=== PATIENT | female | born 1935 | race Caucasian/White ===

== ENCOUNTER 2017-01-18 04:49 | Emergency (ER) | payer OTHER ==
[~2017-01-18] VITALS: Ht 170.2 cm; Wt 110.2 kg
--- NOTE | 2017-01-18 04:57 | ED GENERAL ADULT ---
See Addendum History of Present Illness General Chief Complaint: Dyspnea (COPD, CHF, Other) Stated Complaint: SOB Source: EMS, W10 Exam Limitations: confusion, dementia Vital Signs & Intake/Output Vital Signs & Intake/Output Vital Signs Date Time Temp Pulse Resp B/P B/P Pulse O2 O2 Flow FiO2 Mean Ox Delivery Rate 01/18 0807 97.2 58 18 170/74 94 Nasal 2.0L Cannula 01/18 0651 97.6 54 18 175/75 95 Nasal 1.0L Cannula 01/18 0636 18 93 Nasal 1.0L Cannula 01/18 0527 98 Nasal 2.0L Cannula 01/18 0502 96.5 53 20 166/70 99 Nasal 6.0L Cannula Allergies Coded Allergies: morphine (Severe, ?? UNSURE 01/18/17) UNSURE OF REACTION, W10 FROM [facility] DID NOT STATE,PT POOR HISTORIAN AND AMS nitrofurantoin (From MACROBID) (Intermediate, ?? UNSURE 01/18/17) UNSURE OF REACTION, W10 FROM [facility] DID NOT STATE ON PAPERWORK, PT POOR HISTORIAN AND AMS hydromorphone (?? UNSURE 01/18/17) UNSURE OF REACTION, W10 FROM [facility] DID NOT STATE, PT POOR HISTORIAN AND AMS Triage Nurses Notes Reviewed? yes HPI: Patient sent in from her long-term for evaluation for hypoxia and confusion. Patient was found hypoxic with an O2 sat in the 70s and change of mental status at approximately midnight. Patient was started on oxygen. Patient's mental status did not improve so she was taken for evaluation. Patient has dementia but it is usually very talkative. shelter staff states that this is a big change for her. Patient has no complaints. Patient denies any chest pain or cough. Patient denies any nausea or vomiting. Patient was given 2 duonebs and 125 mg of IV Solu-Medrol by EMS. (LUX CM,BERTHA Mcnair) Past History Travel History Traveled to [place] past 21 day No Medical History Any Pertinent Medical History? see below for history Neurological: dementia, DYSPHAGIA EENT: glaucoma Cardiovascular: AFIB, CHOL Respiratory: COPD Gastrointestinal: NONE Hepatic: NONE Renal: NONE Musculoskeletal: SPINAL STENOSIS Psychiatric: depression Endocrine: HYPOTHYROID DM Blood Disorders: VIT D DEF Surgical History Surgical History: non-contributory Psychosocial History What is your primary language Ukrainian Tobacco Use: Never used Family History Hx Contributory? No (LUX CM,BERTHA Mcnair) Review of Systems Review of Systems Constitutional: Reports: see HPI. (LUX CM,BERTHA Mcnair) Physical Exam Physical Exam General Appearance: well developed/nourished, no apparent distress, awake Head: atraumatic, normal appearance Eyes: Bilateral: PERRL, EOMI. Neck: normal inspection, supple, full range of motion, NO JVD Respiratory: decreased breath sounds, wheezing Cardiovascular: normal peripheral pulses, tachycardia Gastrointestinal: normal bowel sounds, soft, non-tender, no organomegaly Extremities: pedal edema (TRACE) Neurologic/Psych: A&O X2 Skin: intact, normal color, warm/dry Core Measures ACS in differential dx? Yes CVA/TIA Diagnosis: No Severe Sepsis Present: No Septic Shock Present: No (LUX CM,BERTHA Mcnair) Progress Differential Diagnoses I considered the following diagnoses in my evaluation of the patient: Plan of Care: Orders Procedure Date/time Status TROPONIN LEVEL 01/18 09 Complete EKG 01/18 0900 Active ARTERIAL BLOOD GAS (GEN) 01/19 456 Complete Telemetry/Gymnastic Coach 01/19 456 Active Straight Cath 01/19 456 Active CULTURE,URINE 01/19 456 Active BLOOD CULTURE 01/19 456 Active URINALYSIS 01/19 456 Complete TROPONIN LEVEL 01/19 456 Complete COMPREHENSIVE METABOLIC PANEL 01/19 456 Complete CBC WITHOUT DIFFERENTIAL 01/19 456 Complete EKG 01/18 045 Active Laboratory Tests 01/18/17 0858: Troponin I 0.01 01/18/17 0550: pH 7.38, pCO2 45, pO2 73 L, HCO3 27, ABG O2 Sat (Measured) 94.0 L, P-50 (Temp Corrected) Y, Carboxyhemoglobin 0.3 L, O2 Concentration % 2 LPM, Temperature 96.5 L, O2 Delivery Method N/C, Phlebotomy Draw Site RIGHT RADIAL 01/18/17 0515: Urine Color YEL, Urine Clarity CLEAR, Urine pH 6.0, Ur Specific [place] 1.025, Urine Protein NEG, Urine Ketones NEG, Urine Nitrite NEG, Urine Bilirubin NEG, Urine Urobilinogen 0.2, Ur Leukocyte Esterase NEG, Ur Microscopic EXAM NOT REQUIRED, Urine Hemoglobin NEG, Urine Glucose NEG 01/18/17 0500: Anion Gap 8, Estimated GFR 53 L, BUN/Creatinine Ratio 15.0, Glucose 109 H, Calcium 8.6, Total Bilirubin 0.7, AST 19, ALT 25, Alkaline Phosphatase 64, Troponin I 0.02, Total Protein 6.2 L, Albumin 3.7, Globulin 2.5, Albumin/ Globulin Ratio 1.5, CBC w Diff NO MAN DIFF REQ, RBC 3.55 L, MCV 96.7, MCH 32.7 H, RDW 13.1, MPV 9.7, Gran % 62.0, Lymphocytes % 25.9, Monocytes % 7.8, Eosinophils % 3.8, Basophils % 0.5, Absolute Granulocytes 3.9, Absolute Lymphocytes 1.6, Absolute Monocytes 0.5, Absolute Eosinophils 0.2, Absolute Basophils 0, PUBS MCHC 33.8 Microbiology 01/19 524 BLOOD: Blood Culture - RECD 01/18 515 URINE ROUT: Urine Culture - RECD 01/18 0500 BLOOD: Blood Culture - RECD Diagnostic Imaging: Viewed by Me: Radiology Read. Discussed w/RAD: Radiology Read. CXR Impression: PATIENT: PINEDA CASTELLANO PRESENT AGE: 81 PATIENT ACCOUNT NO: [id number] : 34 LOCATION: [facility] ORDERING PHYSICIAN: BERTHA WASSERMAN MD SERVICE DATE: 01/18/17 EXAM TYPE: RAD - XRY-PORTABLE CHEST XRAY EXAMINATION: XR PORTABLE CHEST CLINICAL INFORMATION: Hypoxia. Change in mental status. Presumptive diagnosis of pneumonia. COMPARISON : None TECHNIQUE: Portable AP semierect view of the chest was obtained. FINDINGS : The cardiomediastinal silhouette is enlarged. Prominence of the pulmonary justice bilaterally is noted. Lungs bilaterally demonstrate low lung volumes. Some linear opacities are seen in the retrocardiac left lung base, most likely related to subsegmental atelectasis. No definite dense consolidation, effusion or pneumothorax is seen. No evidence of pulmonary edema. Bony structures unremarkable. IMPRESSION: 1. Enlarged cardiomediastinal silhouette and bilateral justice. This may be related to portable technique. Recommend follow-up PA and lateral views of the chest when clinically appropriate. 2. Low lung volumes with linear retrocardiac left lung base opacities most consistent with subsegmental atelectasis. 3. No dense consolidation. DICTATED BY: LEXII MERRITT MD DATE/ TIME DICTATED:01/18/17623 MAINTENANCE CUSTODIAN:QUIN DATE/TIME TRANSCRIBED: 01/18/17623 CONFIDENTIAL, DO NOT COPY WITHOUT APPROPRIATE AUTHORIZATION. < Electronically signed in Other Vendor System> SIGNED BY: LEXII MERRITT MD 01/18/17 0630 Initial ED EKG: SR WITH LBBB AND FIRST DEGREE HEART BLOCK. NO OLD TO COMPARE Hand-Off Endorsed To: ARIC VANEGAS MD Endorsed Time: 07 Pending: labs (BERTHA WASSERMAN MD) Comments: Spoke with daughter. Patient had pneumonia over winter with short period of time requiring oxygen. She reports her mental status is at baseline. Currently on 1L NC. Repeat EKG without change and troponin normal. (ARIC VANEGAS MD) Departure Departure Condition: Stable Clinical Impression Primary Impression: COPD (chronic obstructive pulmonary disease) Referrals: CHU ROLDAN MD (PCP/Family) Departure Forms: Customer Survey General Discharge Information (BERTHA WASSERMAN MD) Departure Time of Disposition: 948 Disposition: ACUTE REHAB FACILITY (ARIC VANEGAS MD) Critical Care Note Critical Care Note Critical Care Time: non-applicable (BERTHA WASSERMAN MD)
[2017-01-18 05:09] LABS: ABSOLUTE BASOPHIL COUNT 0 /CUMM (0.0-0.2); ABSOLUTE EOSINOPHIL COUNT 0.2 /CUMM (0.0-0.7); ABSOLUTE GRANULOCYTE CT 3.9 /CUMM (1.4-6.5); ABSOLUTE LYMPH COUNT 1.6 /CUMM (1.2-3.4); ABSOLUTE MONOCYTE COUNT 0.5 /CUMM (0.10-0.60); BASOPHIL % 0.5 % (0.0-2.0); EOSINOPHIL % 3.8 % (0-5); HEMATOCRIT 34.3 % (37-47); MEAN CORPUSCULAR HGB 32.7 PG (27.0-31.0); MEAN CORPUSCULAR HGB CONC 33.8 G/DL (33.0-37.0); MEAN CORPUSCULAR VOLUME 96.7 FL (81.0-99.0); MEAN PLATELET VOLUME 9.7 FL (7.4-10.4); PLATELET COUNT 171 /CUMM (130-400); RBC DISTRIBUTION WIDTH 13.1 % (11.5-14.5); RED BLOOD CELL CT 3.55 /CUMM (4.20-5.40); WHITE BLOOD CELL COUNT 6.2 /CUMM (4.8-10.8)
--- NOTE | 2017-01-18 06:30 | RADIOLOGY REPORT ---
EXAMINATION: XR PORTABLE CHEST CLINICAL INFORMATION: Hypoxia. Change in mental status. Presumptive diagnosis of pneumonia. COMPARISON: None TECHNIQUE: Portable AP semierect view of the chest was obtained. FINDINGS: The cardiomediastinal silhouette is enlarged. Prominence of the pulmonary justice bilaterally is noted. Lungs bilaterally demonstrate low lung volumes. Some linear opacities are seen in the retrocardiac left lung base, most likely related to subsegmental atelectasis. No definite dense consolidation, effusion or pneumothorax is seen. No evidence of pulmonary edema. Bony structures unremarkable. IMPRESSION: 1. Enlarged cardiomediastinal silhouette and bilateral justice. This may be related to portable technique. Recommend follow-up PA and lateral views of the chest when clinically appropriate. 2. Low lung volumes with linear retrocardiac left lung base opacities most consistent with subsegmental atelectasis. 3. No dense consolidation.
[2017-01-18 10:09] VITALS: BP 115/61
== END 2017-01-18 10:19 ==
LOC: ERH 04:49
PROVIDERS: Emergency Medicine
DX: J44.9 Chronic obstructive pulmonary disease, unspecified (principal)
CPT/HCPCS: 81003; 87040; 87086; 87147; 93005; 93010

== ENCOUNTER 2017-01-19 02:22 | Emergency (ER) | payer OTHER ==
[~2017-01-19] VITALS: Ht 162.6 cm; Wt 81.6 kg
--- NOTE | 2017-01-19 02:28 | ED GENERAL ADULT ---
History of Present Illness General Chief Complaint: General Adult Stated Complaint: BIBA FROM ECF HERE FOR EVAL ? +BLOOD CULTURE Source: patient, family, old records, EMS Exam Limitations: no limitations, patient's age, clinical condition Vital Signs & Intake/Output Vital Signs & Intake/Output Vital Signs Date Time Temp Pulse Resp B/P B/P Pulse O2 O2 Flow FiO2 Mean Ox Delivery Rate 01/19 0228 96.8 66 18 153/65 93 Room Air Allergies Coded Allergies: morphine (Severe, ?? UNSURE 01/18/17) UNSURE OF REACTION, W10 FROM [facility] DID NOT STATE,PT POOR HISTORIAN AND AMS nitrofurantoin (From MACROBID) (Intermediate, ?? UNSURE 01/18/17) UNSURE OF REACTION, W10 FROM [facility] DID NOT STATE ON PAPERWORK, PT POOR HISTORIAN AND AMS hydromorphone (?? UNSURE 01/18/17) UNSURE OF REACTION, W10 FROM [facility] DID NOT STATE, PT POOR HISTORIAN AND AMS Triage Nurses Notes Reviewed? yes Onset: Gradual Duration: day(s): Timing: recent history Injury Environment: home Severity: mild No Modifying Factors: none Associated Symptoms: pt reports feeling well. HPI: 81-year-old woman from a snf presents to the ED after having one out of 2 bottles being positive for gram-positive cocci. The lab contacted this ED provider and shared that one out of 2 bottles was positive for gram-positive cocci. I then called her snf to have the patient transferred here for further evaluation. The patient states that she is feeling well, without complaint, and is comfortable. She is otherwise well. She has no fever chills nausea vomiting diarrhea shortness of breath or chest pain or dyspnea or dysuria. Past History Medical History Any Pertinent Medical History? see below for history Neurological: dementia, DYSPHAGIA EENT: glaucoma Cardiovascular: AFIB, CHOL Respiratory: COPD Gastrointestinal: NONE Hepatic: NONE Renal: NONE Musculoskeletal: SPINAL STENOSIS Psychiatric: depression Endocrine: HYPOTHYROID DM Blood Disorders: VIT D DEF Surgical History Surgical History: non-contributory Psychosocial History What is your primary language [place] Family History Hx Contributory? No Review of Systems Review of Systems Constitutional: Reports: no symptoms. EENTM: Reports: no symptoms. Respiratory: Reports: no symptoms. Cardiovascular: Reports: no symptoms. GI: Reports: no symptoms. Genitourinary: Reports: no symptoms. Musculoskeletal: Reports: no symptoms. Skin: Reports: no symptoms. Neurological/Psychological: Reports: no symptoms. Hematologic/Endocrine: Reports: no symptoms. Immunologic/Allergic: Reports: no symptoms. All Other Systems: Reviewed and Negative Physical Exam Physical Exam General Appearance: well developed/nourished, no apparent distress, alert, awake , comfortable Head: atraumatic, normal appearance Eyes: Bilateral: normal appearance. Ears, Nose, Throat: normal pharynx, normal ENT inspection, hearing grossly normal Neck: normal inspection, supple, full range of motion Respiratory: normal breath sounds, chest non-tender, no respiratory distress, quiet respiration, lungs clear Cardiovascular: regular rate/rhythm, edema Gastrointestinal: normal bowel sounds, soft, non-tender, no organomegaly Back: normal inspection, normal range of motion Neurologic/Psych: no motor/sensory deficits, awake, alert, oriented x 3 Skin: intact, normal color, warm/dry Core Measures ACS in differential dx? No CVA/TIA Diagnosis: No Severe Sepsis Present: No Septic Shock Present: No Progress Differential Diagnoses I considered the following diagnoses in my evaluation of the patient: False positive blood culture versus sepsis versus bacteremia, which is unlikely. Plan of Care: Orders Procedure Date/time Status BLOOD CULTURE 01/20 240 Active BLOOD CULTURE 01/20 228 Active TROPONIN LEVEL 01/20 228 Complete COMPREHENSIVE METABOLIC PANEL 01/20 228 Complete CBC WITHOUT DIFFERENTIAL 01/20 228 Complete EKG 01/20 228 Active Laboratory Tests 01/19/17 0140: Anion Gap 11, Estimated GFR 53 L, BUN/Creatinine Ratio 20.0, Glucose 167 H, Calcium 9.4, Total Bilirubin 0.9, AST 19, ALT 26, Alkaline Phosphatase 72, Troponin I 0.03, Total Protein 6.6, Albumin 3.9, Globulin 2.7, Albumin/Globulin Ratio 1.4, CBC w Diff NO MAN DIFF REQ, RBC 3.54 L, MCV 97.0, MCH 32.9 H, RDW 13.3, MPV 10.7 H, Gran % 90.7 H, Lymphocytes % 5.9 L, Monocytes % 3.4, Eosinophils % 0, Basophils % 0 L, Absolute Granulocytes 12.0 H, Absolute Lymphocytes 0.8 L, Absolute Monocytes 0.4, Absolute Eosinophils 0, Absolute Basophils 0, PUBS MCHC 34.0 Microbiology 01/20 140 BLOOD: Blood Culture - RECD 01/19 130 BLOOD: Blood Culture - RECD Initial ED EKG: LBBB, no change from prior. Departure Departure Disposition: HOME OR SELF CARE Condition: Stable Clinical Impression Primary Impression: Positive blood culture Referrals: CHU ROLDAN MD (PCP/Family) Departure Forms: Customer Survey General Discharge Information Comments 01/19/17, 5:20am... pt stable in ED throughout... labs benign... she is feeling well and is without concern.... pt may have had a false positive blood culture. Blood cultures re-sent. Pt safe for discharge. Critical Care Note Critical Care Note Critical Care Time: non-applicable
[2017-01-19 03:06] LABS: ABSOLUTE BASOPHIL COUNT 0 /CUMM (0.0-0.2); ABSOLUTE EOSINOPHIL COUNT 0 /CUMM (0.0-0.7); ABSOLUTE LYMPH COUNT 0.8 /CUMM (1.2-3.4); ABSOLUTE MONOCYTE COUNT 0.4 /CUMM (0.10-0.60); BASOPHIL % 0 % (0.0-2.0); EOSINOPHIL % 0 % (0-5); GRANULOCYTE % 90.7 % (42.2-75.2); HEMATOCRIT 34.4 % (37-47); MEAN CORPUSCULAR HGB 32.9 PG (27.0-31.0); MEAN PLATELET VOLUME 10.7 FL (7.4-10.4); PLATELET COUNT 190 /CUMM (130-400); RBC DISTRIBUTION WIDTH 13.3 % (11.5-14.5); RED BLOOD CELL CT 3.54 /CUMM (4.20-5.40)
[2017-01-19 03:21] LABS: WHITE BLOOD CELL COUNT 13.2 /CUMM (4.8-10.8)
[2017-01-19 05:40] VITALS: BP 157/70
== END 2017-01-19 06:04 ==
LOC: ERH 02:22
PROVIDERS: Pediatrics
DX: R78.81 Bacteremia (principal); I48.91 Unspecified atrial fibrillation; F03.90 Unspecified dementia, unspecified severity, without behavioral disturbance, psychotic disturbance, mood disturbance, and anxiety
CPT/HCPCS: 87040; 93005; 93010

== ENCOUNTER 2017-10-20 13:14 | Inpatient (IN) | payer OTHER, MEDICARE ==
[~2017-10-20] VITALS: Ht 170.2 cm; Wt 94.4 kg
[~2017-10-20 13:14] MED LIST: ACETAMINOPHEN500 M4 PO; AMIODARONE HCL200 M1 PO; ASPIRIN81 M4 PO; ATORVASTATIN CA20 M1 PO; BETIMOL5 M1 OU; BIOFREEZE118 ML TOP; BREO ELLIPTA 11 EACH PO; ELIQUIS5 M1 PO; FLUTICASONE PRO16 GM NASB; GAVILAX17 GM PO; HYDRALAZINE HCL50 M1 PO; HYDROCHLOROTHIA25 M1 PO; IPRAT-ALBUT 0.5-3 ML PO; KEFLEX500 M1 PO; LEVOTHYROXINE112 MCG PO; MIRTAZAPINE15 M2 PO; NAMENDA XR14 M1 PO; NIASPAN500 M1 PO; PERCOCET 5-3251 EACH PO; POTASSIUM CHLO10 ME3 PO; SENNA S TABLET1 EACH PO; SEROQUEL25 M1 PO; TRAMADOL HCL50 M1 PO; TRAVATAN Z5 ML OU; TRAZODONE HCL50 M1 PO; VITAMIN B-121000 MC3 PO; VITAMIN D250000 UNIT PO; VOLTAREN100 GM TOP
--- NOTE | 2017-10-20 13:30 | ED AMS/SEIZURE/WEAK/DIZZY ---
History of Present Illness General Chief Complaint: General Adult Stated Complaint: BIBA APHASIA Source: patient, family, old records, EMS Exam Limitations: confusion Vital Signs & Intake/Output Vital Signs & Intake/Output Vital Signs Date Time Temp Pulse Resp B/P B/P Pulse O2 O2 Flow FiO2 Mean Ox Delivery Rate 10/20 1527 Room Air Room Air 10/20 1526 98.0 60 20 139/64 94 Room Air 10/20 1319 98.1 58 16 128/50 96 Room Air Allergies Coded Allergies: morphine (Intermediate, VIIOLENT GI UPSET 10/20/17) UNSURE OF REACTION, W10 FROM [facility] DID NOT STATE,PT POOR HISTORIAN AND AMS nitrofurantoin (From MACROBID) (Intermediate, ?? UNSURE 10/20/17) UNSURE OF REACTION, W10 FROM [facility] DID NOT STATE ON PAPERWORK, PT POOR HISTORIAN AND AMS hydromorphone (?? UNSURE 10/20/17) UNSURE OF REACTION, W10 FROM [facility] DID NOT STATE, PT POOR HISTORIAN AND AMS lisinopril (UNKNOWN 10/20/17) Reconcile Medications Acetaminophen 500 MG TABLET 2 TAB PO TID PAIN (Reported) Amiodarone (Cordarone) 200 MG TAB 0.5 TAB PO DAILY HIGH BLOOD PRESSURE ( Reported) Apixaban (Eliquis) 5 MG TABLET 1 TAB PO BID BLOOD HEALTH (Reported) Aspirin (Aspirin*) 81 MG TAB.CHEW 1 TAB PO DAILY HEART HEALTH (Reported) Atorvastatin Calcium 20 MG TABLET 1 TAB PO QPM HIGH CHOLESTROL (Reported) Cephalexin (Keflex) 500 MG CAPSULE 1 CAP PO BID UTI Cyanocobalamin (Vitamin B-12) 1,000 MCG TABLET 1 TAB PO QPM VITAMIN SUPPORT ( Reported) Diclofenac Sodium (Voltaren) 1 % GEL..GRAM. 2 GM TOP BID KNEES (Reported) apply to affected area(s) Ergocalciferol (Vitamin D2) (Vitamin D2) 50,000 UNIT CAPSULE 1 CAP PO EVERY MONTH HEALTH SUPPLEMENT (Reported) ON THE AT 9 AM Fluticasone Propionate 50 MCG/ACTUATION SPRAY.SUSP 1 SPRAY NASB BID ALLERGIES (Reported) Fluticasone/Vilanterol (Breo Ellipta 100-25 Mcg INH) 100 MCG-25 MCG/DOSE BLST.W.DEV 1 PUFF PO DAILY BREATHING PROBLEMS (Reported) Hydralazine HCl 50 MG TABLET 1 TAB PO Q12 HIGH BLOOD PRESSURE (Reported) Hydrochlorothiazide 25 MG TABLET 1 TAB PO DAILY HIGH BLOOD PRESSURE (Reported ) Ipratropium/Albuterol Sulfate (Iprat-Albut 0.5-3(2.5) MG/3 Ml) 0.5 MG-3 MG (2.5 MG BASE)/3 ML AMPUL.NEB 1 VIAL PO TID BREATHING PROBLEMS (Reported) Levothyroxine Sodium 112 MCG TABLET 1 TAB PO QPM THYROID (Reported) Memantine HCl (Namenda XR) 14 MG CAP.SPR.24 1 CAP PO DAILY MENTAL HEALTH ( Reported) Menthol (Biofreeze) 4 % GEL..ML. 1 SERAFIN TOP BID BACK (Reported) Mirtazapine 15 MG TABLET 1 TAB PO QPM SLEEP (Reported) Niacin (Niaspan) 500 MG TAB.ER.24H 1 TAB PO QPM UNKNOWN (Reported) Oxycodone HCl/Acetaminophen (Percocet 5-325 MG Tablet) 5 MG-325 MG TABLET 10.5 TAB PO BID PAIN (Reported) Polyethylene Glycol 3350 (Gavilax) 17 GRAM POWD.PACK 1 PAC PO SuTuFr CONSTIPATION (Reported) Potassium Chloride 10 MEQ CAPSULE.ER 1 CAP PO DAILY HEALTH SUPPLEMENT ( Reported) Quetiapine Fumarate (Seroquel) 25 MG TABLET 1 TAB PO QPM MENTAL HEALTH ( Reported) Sennosides/Docusate Sodium (Senna S Tablet) 8.6 MG-50 MG TABLET 1 TAB PO BID CONSTIPATION (Reported) Timolol (Betimol) 0.5 % DROPS 1 DRP OPH QPM EYE (Reported) Travoprost (Travatan Z) 0.004 % DROPS 1 GTT OPH DAILY EYE PROBLEMS (Reported) Trazodone HCl 50 MG TABLET 0.5 TAB PO QPM SLEEP (Reported) Triage Note: 82 Y/O FEMALE [facility] FOR EVAL OF 2 EPISODES OF APHASIA THIS MORNING. PER EMS REPORT, PT "HAD TWO EPISODES WHERE SHE LOOKED OFF INTO SPACE AND WASNT RESPONDING .. BOTH RESOLVED BY THE TIME THEY CALLED US". EMS REPORTS "THE LAST TIME SHE DID THIS, SHE HAD A UTI PER STAFF AT FACILITY". PT ARRIVES A/O (HX DEMENTIA), RESPONDING APPROPRIATELY. PT UNABLE TO STATE WHAT HAPPENED THIS MORNING BUT CAN STATE SHE IS IN A HOSPITAL NOW. PT DENIES COMPLAINTS. SLOW TO RESPOND THOUGH RESPONDS TO POSED QUESTIONS CORRECTLY. NO FACIAL DROOP NOTED. PRE HOSPITAL FINGERSTICK 111. PREHOSPITAL IV IN PL[facility] [place] BOSS OUT TO [place] [facility] Triage Nurses Notes Reviewed? yes Onset: Abrupt Duration: unknown duration Timing: recent history Injury Environment: home Severity: moderate, severe No Modifying Factors: none HPI: 82-year-old female brought into the emergency room after having a episode of unresponsiveness between 9 AM and 10 PM approximately this morning at nursing facility. This has happened to the patient previously. She has these episodes where she does not respond and is confused. There was no facial drooping reported. She denies any chest pain or shortness of breath or any symptoms at this time. She was brought in by ambulance for further evaluation. (Joseph Rai) Past History Travel History Traveled to [place] past 21 day No Medical History Any Pertinent Medical History? see below for history Neurological: dementia, DYSPHAGIA EENT: glaucoma Cardiovascular: AFIB, CHOL Respiratory: COPD Gastrointestinal: NONE Hepatic: NONE Renal: NONE Musculoskeletal: SPINAL STENOSIS Psychiatric: depression Endocrine: HYPOTHYROID DM Blood Disorders: VIT D DEF Surgical History Surgical History: non-contributory Psychosocial History What is your primary language Amharic Tobacco Use: Never used Family History Hx Contributory? No (Joseph Rai) Review of Systems Review of Systems Constitutional: Reports: no symptoms. EENTM: Reports: no symptoms. Respiratory: Reports: no symptoms. Cardiovascular: Reports: no symptoms. GI: Reports: no symptoms. Genitourinary: Reports: no symptoms. Musculoskeletal: Reports: no symptoms. Skin: Reports: no symptoms. Neurological/Psychological: Reports: see HPI. Hematologic/Endocrine: Reports: no symptoms. Immunologic/Allergic: Reports: no symptoms. All Other Systems: Reviewed and Negative (Joseph Rai) Physical Exam Physical Exam General Appearance: alert, awake Head: atraumatic Eyes: Bilateral: normal appearance, EOMI. Ears, Nose, Throat: normal ENT inspection, hearing grossly normal Neck: normal inspection Respiratory: normal breath sounds, no respiratory distress Cardiovascular: regular rate/rhythm Gastrointestinal: soft Back: normal inspection Extremities: normal range of motion Neurologic/Psych: no motor/sensory deficits, awake, alert, oriented x 3, normal gait, yarn cleaner II-XII nml as tested Skin: intact, normal color Core Measures ACS in differential dx? Yes CVA/TIA Diagnosis Yes NIH Stroke Scale (24 Hours) NIH Stroke Scale (24 Hours) Response Value Level of Consciousness alert 0 LOC Questions answers both correctly 0 LOC Commands obeys both correctly 0 Best Gaze normal 0 Visual Olguin no visual loss 0 Facial Paresis normal 0 Motor Arm - Left no drift 0 Motor Arm - Right no drift 0 Motor Leg - Left untestable 0 Motor Leg - Right untestable 0 Limb Ataxia no ataxia 0 Sensory normal 0 Best Language no aphasia 0 Dysarthria normal articulation 0 Extinction and Inattention no neglect 0 Total 0 Date Last Known Well 10/20/17 (UNNOWN) Symptom start date 10/20/17 Reason tPA not ordered Medical Contraindication Swallow Evaluation Pass Swallow eval date 10/20/17 Swallow eval time 1547 Sepsis Present: No Sepsis Focused Exam Completed? No (Joseph Rai) Progress Differential Diagnosis: arrythmia, benign positional vertigo, CVA/stroke, drug intoxication, electrolyte imbalance, intracranial Hem., presyncope, seizure disorder, UTI/pyelo, TIA Plan of Care: Orders Procedure Date/time Status Regular Diet 10/20 D Active OXYGEN SETUP (GEN) 10/20 1603 Active Saline Lock 10/20 1603 Active Admit to inpatient 10/20 1603 Active Vital Signs 10/20 1603 Active Activity/Ambulation 10/20 1603 Active Code Status 10/20 1603 Active BLOOD CULTURE 10/20 1330 Active URINALYSIS 10/20 1329 Complete TROPONIN LEVEL 10/20 1329 Complete PARTIAL THROMBOPLASTIN TIME 10/20 1329 Complete PROTHROMBIN TIME 10/20 1329 Complete COMPREHENSIVE METABOLIC PANEL 10/20 1329 Complete CBC WITHOUT DIFFERENTIAL 10/20 1329 Complete EKG 10/20 1329 Active Laboratory Tests 10/20/17 1519: Urine Color YEL, Urine Clarity CLEAR, Urine pH 7.0, Ur Specific [place] 1.015, Urine Protein NEG, Urine Ketones NEG, Urine Nitrite NEG, Urine Bilirubin NEG, Urine Urobilinogen 0.2, Ur Leukocyte Esterase TRACE H, Ur Microscopic SEDIMENT EXAMINED, Urine RBC RARE, Urine WBC RARE, Ur Epithelial Cells FEW, Urine Hemoglobin NEG, Urine Glucose NEG 10/20/17 1410: Anion Gap 11, Estimated GFR 53 L, BUN/Creatinine Ratio 19.0, Glucose 104 H, Calcium 9.1, Total Bilirubin 0.8, AST 20, ALT 21, Alkaline Phosphatase 65, Troponin I 0.02, Total Protein 6.8, Albumin 4.0, Globulin 2.8, Albumin/Globulin Ratio 1.4, PT 17.8 H, INR 1.63 H, APTT 35, CBC w Diff NO MAN DIFF REQ, RBC 3.47 L, MCV 94.6, MCH 33.4 H, MCHC 35.3, RDW 12.5, MPV 10.8 H, Gran % 70.6, Lymphocytes % 18.6 L, Monocytes % 7.4, Eosinophils % 2.8, Basophils % 0.6, Absolute Granulocytes 4.6, Absolute Lymphocytes 1.2, Absolute Monocytes 0.5, Absolute Eosinophils 0.2, Absolute Basophils 0 Microbiology 10/20 1454 BLOOD: Blood Culture - RECD 10/20 1409 BLOOD: Blood Culture - RECD Diagnostic Imaging: Viewed by Me: Radiology Read, CT Scan. Discussed w/RAD: Radiology Read, CT Scan. Radiology Impression: PATIENT: PINEDA CASTELLANO PRESENT AGE: 82 PATIENT ACCOUNT NO: [id number] : 34 LOCATION: ER ORDERING PHYSICIAN: Joseph SIM SERVICE DATE: 10/20/17 EXAM TYPE : RAD - XRY-PORTABLE CHEST XRAY EXAMINATION: XR PORTABLE CHEST CLINICAL INFORMATION: Altered mental status. COMPARISON: No relevant prior imaging. TECHNIQUE: Portable frontal view of the chest was obtained. FINDINGS: Lungs are well-expanded. No focal consolidative disease, pleural effusion, or pneumothorax. The cardiac silhouette and upper mediastinal contours are normal. No acute osseous finding. IMPRESSION: Unremarkable chest radiograph. No consolidative disease or effusion. DICTATED BY: Rafael Vincent MD DATE/TIME DICTATED:10/20/171449 AIRCRAFT TOOL MAKER:QUIN DATE/TIME TRANSCRIBED:1449 CONFIDENTIAL, DO NOT COPY WITHOUT APPROPRIATE AUTHORIZATION. < Electronically signed in Other Vendor System> SIGNED BY: Rafael Vincent MD 10/20/171454, PATIENT: PINEDA CASTELLANO PRESENT AGE: 82 PATIENT ACCOUNT NO: [id number] : 34 LOCATION: ER ORDERING PHYSICIAN: Joseph SIM SERVICE DATE: 10/20/17 EXAM TYPE: CAT - CT HEAD WO IV CONTRAST EXAMINATION: CT HEAD WITHOUT CONTRAST CLINICAL INFORMATION: Altered mental status. COMPARISON: CT head 10/02/2017. TECHNIQUE: Contiguous axial imaging was performed from the skull base to vertex without intravenous administration of contrast. DLP: 616.02 mGy-cm FINDINGS: There is no acute intracranial hemorrhage or abnormal extra-axial collection. No intracranial mass effect or midline shift. Lateral and third ventricles are normal. No hydrocephalus. Scattered foci of hypoattenuation are visualized within the periventricular white matter. Howell-white matter differentiation is otherwise grossly preserved and there is no evidence of acute territorial infarct. The calvarium and skull base are intact. Mastoid air cells and middle ear cavities are well-aerated. Visualized paranasal sinuses are well-aerated. IMPRESSION: There are scattered chronic small vessel ischemic changes within the periventricular white matter. No evidence of acute territorial infarct or hemorrhage. DICTATED BY: Rafael Vincent MD DATE/TIME DICTATED:10/20/171356 AIRCRAFT TOOL MAKER:QUIN DATE/TIME TRANSCRIBED:10/20/171356 CONFIDENTIAL, DO NOT COPY WITHOUT APPROPRIATE AUTHORIZATION. <Electronically signed in Other Vendor System> SIGNED BY: Rafael Vincent MD 10/20/17 1402 Initial ED EKG: normal sinus rhythm, rate (58), LBBB (Joseph Rai) Departure Departure Disposition: STILL A PATIENT Condition: Stable Clinical Impression Primary Impression: TIA (transient ischemic attack) Referrals: Vicki Gamble MD (PCP/Family) Departure Forms: Customer Survey General Discharge Information Admission Note Spoke With: Ana Maria Loco MD Documentation of Exam: Documentation of any treatments & extenuating circumstances including Concerns Regarding Discharge (functional status, medication knowledge or non-compliance, living conditions, etc.) that warrant an admission rather than observation: Cardiac telemetry. Neurology consultation. Serial neuro exams. Vital signs checked. MRI of brain. (Joseph Rai) PA/INCOME TAX PREPARER Co-Sign Statement Statement: ED Attending supervision documentation- x I saw and evaluated the patient. I have also reviewed all the pertinent lab results and diagnostic results. I agree with the findings and the plan of care as documented in the PA's/INCOME TAX PREPARER's documentation. Multiple episodes of aphasia / unresponsiveness with slowed mentation and ability to follow commands. [] I have reviewed the ED Record and agree with the PA's/INCOME TAX PREPARER's documentation. [] Additions or exceptions (if any) to the PAs/INCOME TAX PREPARER's note and plan are summarized below: [] (Alina CM,Betito)
--- NOTE | 2017-10-20 14:02 | CT SCAN REPORT ---
EXAMINATION: CT HEAD WITHOUT CONTRAST CLINICAL INFORMATION: Altered mental status. COMPARISON: CT head 10/02/2017. TECHNIQUE: Contiguous axial imaging was performed from the skull base to vertex without intravenous administration of contrast. DLP: 616.02 mGy-cm FINDINGS: There is no acute intracranial hemorrhage or abnormal extra-axial collection. No intracranial mass effect or midline shift. Lateral and third ventricles are normal. No hydrocephalus. Scattered foci of hypoattenuation are visualized within the periventricular white matter. Howell-white matter differentiation is otherwise grossly preserved and there is no evidence of acute territorial infarct. The calvarium and skull base are intact. Mastoid air cells and middle ear cavities are well-aerated. Visualized paranasal sinuses are well-aerated. IMPRESSION: There are scattered chronic small vessel ischemic changes within the periventricular white matter. No evidence of acute territorial infarct or hemorrhage.
[2017-10-20 14:26] LABS: ABSOLUTE BASOPHIL COUNT 0 /CUMM (0.0-0.2); ABSOLUTE EOSINOPHIL COUNT 0.2 /CUMM (0.0-0.7); ABSOLUTE GRANULOCYTE CT 4.6 /CUMM (1.4-6.5); ABSOLUTE LYMPH COUNT 1.2 /CUMM (1.2-3.4); ABSOLUTE MONOCYTE COUNT 0.5 /CUMM (0.10-0.60); BASOPHIL % 0.6 % (0.0-2.0); EOSINOPHIL % 2.8 % (0-5); GRANULOCYTE % 70.6 % (42.2-75.2); HEMATOCRIT 32.8 % (37-47); MEAN CORPUSCULAR HGB 33.4 PG (27.0-31.0); MEAN CORPUSCULAR HGB CONC 35.3 G/DL (33.0-37.0); MEAN CORPUSCULAR VOLUME 94.6 FL (81.0-99.0); MEAN PLATELET VOLUME 10.8 FL (7.4-10.4); PLATELET COUNT 189 /CUMM (130-400); RBC DISTRIBUTION WIDTH 12.5 % (11.5-14.5); RED BLOOD CELL CT 3.47 /CUMM (4.20-5.40); WHITE BLOOD CELL COUNT 6.6 /CUMM (4.8-10.8)
[2017-10-20 14:34] LABS: PT 17.8 SEC (9.4-12.5); PTT 35 SEC (25-37)
--- NOTE | 2017-10-20 14:55 | RADIOLOGY REPORT ---
EXAMINATION: XR PORTABLE CHEST CLINICAL INFORMATION: Altered mental status. COMPARISON: No relevant prior imaging. TECHNIQUE: Portable frontal view of the chest was obtained. FINDINGS: Lungs are well-expanded. No focal consolidative disease, pleural effusion, or pneumothorax. The cardiac silhouette and upper mediastinal contours are normal. No acute osseous finding. IMPRESSION: Unremarkable chest radiograph. No consolidative disease or effusion.
--- NOTE | 2017-10-20 17:21 | History & Physical ---
Elias CM,Edwin 10/20/17 1399: General Information and HPI MD Statement: I have seen and personally examined PINEDA CASTELLANO and documented this H&P. The patient is a 82 year old F who presented with a patient stated chief complaint of [tia vs seizure]. Source of Information: patient, family, old records Exam Limitations: dementia History of Present Illness: Patient is an 82-year-old female with a PMH significant for dementia, paroxysmal A. fib, HLD, HTN, spinal stenosis, DM, glaucoma, anxiety, depression who presents from [facility] by ambulance after being found unresponsive this morning at approximately 0900 on the day of admission. Patient was in her usual state of health yesterday when she went to bed with an unknown time, however when the staff went to wake her this morning she was lethargic and difficult to arouse however she would open her eyes and speak but was confused. At this time the nursing staff at [facility] reported that her pupils were nonreactive and she was very difficult to arouse. This history was obtained from the nursing staff at [facility] based on their documentation which was limited. They did not document the presence or absence of any tonic-clonic movements, loss of bowel or bladder function, lip smacking, tongue biting. The patient has had 2 such episodes in the past once 2 weeks ago when she was brought to the [facility] and treated for a UTI, and once one month ago. She has no history of CVA, seizures. Patient is a very poor historian and much of the rest of the patient's history was obtained from her daughter at bedside. Currently the patient only complains of left knee pain and back pain which is chronic. She denies any chest pain, palpitations, numbness, tingling, headache, blurry vision, weakness, nausea, vomiting, fever, chills. Allergies/Medications Allergies: Coded Allergies: morphine (Intermediate, VIIOLENT GI UPSET 10/20/17) UNSURE OF REACTION, W10 FROM [facility] DID NOT STATE,PT POOR HISTORIAN AND AMS nitrofurantoin (From MACROBID) (Intermediate, ?? UNSURE 10/20/17) UNSURE OF REACTION, W10 FROM [facility] DID NOT STATE ON PAPERWORK, PT POOR HISTORIAN AND AMS hydromorphone (?? UNSURE 10/20/17) UNSURE OF REACTION, W10 FROM [facility] DID NOT STATE, PT POOR HISTORIAN AND AMS lisinopril (UNKNOWN 10/20/17) Past History Travel History Traveled to [place] past 21 day No Medical History Neurological: dementia EENT: glaucoma Cardiovascular: AFIB, hyperlipidemia Respiratory: COPD Gastrointestinal: NONE Hepatic: NONE Renal: NONE Musculoskeletal: osteoarthritis, SPINAL STENOSIS LEG FRACTURE Psychiatric: depression Endocrine: diabetes, hypothyroidism, (BORDERLINE DM) Blood Disorders: VIT D DEF Cancer(s): NONE ASTRO TECHNICIAN/Reproductive: NONE Surgical History Surgical History: non-contributory Past Family/Social History Family History Relations & Conditions if any Relation not specified for: *No pertinent family history Psychosocial History Smoking Status: Former Smoker ETOH Use: denies use Illicit Drug Use: denies illicit drug use Living Will? yes Review of Systems Review of Systems Constitutional: Reports: see HPI. Exam & Diagnostic Data Last 24 Hrs of Vital Signs/I&O Vital Signs Date Time Temp Pulse Resp B/P B/P Pulse O2 O2 Flow FiO2 Mean Ox Delivery Rate 10/20 1803 65 20 147/68 94 Room Air 10/20 1527 Room Air Room Air 10/20 1526 98.0 60 20 139/64 94 Room Air 10/20 1319 98.1 58 16 128/50 96 Room Air Intake & Output 10/20 1600 10/20 0800 10/20 0000 Intake Total Output Total 50 Balance -50 Output, Urine 50 Patient 230 lb Weight Weight Reported by Patient Measurement Method Physical Exam General Appearance Alert, Cooperative, No Acute Distress, oriented only to person Sepsis Skin Exam (color): Normal for Ethnicity Cardiovascular Regular Rate, Normal S1, Normal S2 Lungs Clear to Auscultation, Normal Air Movement Abdomen Normal Bowel Sounds, Soft, No Tenderness Neurological Normal Speech, Strength at 5/5 X4 Ext, Normal Tone, Sensation Intact, Cranial Nerves 3-12 NL Extremities No Clubbing Last 24 Hrs of Labs/Tolu: Laboratory Tests 10/20/17 1519: Urine Color YEL, Urine Clarity CLEAR, Urine pH 7.0, Ur Specific [place] 1.015, Urine Protein NEG, Urine Ketones NEG, Urine Nitrite NEG, Urine Bilirubin NEG, Urine Urobilinogen 0.2, Ur Leukocyte Esterase TRACE H, Ur Microscopic SEDIMENT EXAMINED, Urine RBC RARE, Urine WBC RARE, Ur Epithelial Cells FEW, Urine Hemoglobin NEG, Urine Glucose NEG 10/20/17 1410: Anion Gap 11, Estimated GFR 53 L, BUN/Creatinine Ratio 19.0, Glucose 104 H, Calcium 9.1, Total Bilirubin 0.8, AST 20, ALT 21, Alkaline Phosphatase 65, Troponin I 0.02, Total Protein 6.8, Albumin 4.0, Globulin 2.8, Albumin/Globulin Ratio 1.4, PT 17.8 H, INR 1.63 H, APTT 35, CBC w Diff NO MAN DIFF REQ, RBC 3.47 L, MCV 94.6, MCH 33.4 H, MCHC 35.3, RDW 12.5, MPV 10.8 H, Gran % 70.6, Lymphocytes % 18.6 L, Monocytes % 7.4, Eosinophils % 2.8, Basophils % 0.6, Absolute Granulocytes 4.6, Absolute Lymphocytes 1.2, Absolute Monocytes 0.5, Absolute Eosinophils 0.2, Absolute Basophils 0 Microbiology 10/20 1744 URINE ROUT: Urine Culture - ORD 10/20 1455 BLOOD: Blood Culture - RECD 10/20 1410 BLOOD: Blood Culture - RECD Diagnostic Data EKG Results old LBBB no significant ST-T changes CXR Results Lungs are well-expanded. No focal consolidative disease, pleural effusion, or pneumothorax. The cardiac silhouette and upper mediastinal contours are normal. No acute osseous finding. IMPRESSION: Unremarkable chest radiograph. No consolidative disease or effusion. Other Results CT head w/o contrast There is no acute intracranial hemorrhage or abnormal extra-axial collection. No intracranial mass effect or midline shift. Lateral and third ventricles are normal. No hydrocephalus. Scattered foci of hypoattenuation are visualized within the periventricular white matter. Howell-white matter differentiation is otherwise grossly preserved and there is no evidence of acute territorial infarct. The calvarium and skull base are intact. Mastoid air cells and middle ear cavities are well-aerated. Visualized paranasal sinuses are well-aerated. IMPRESSION: There are scattered chronic small vessel ischemic changes within the periventricular white matter. No evidence of acute territorial infarct or hemorrhage. Assessment/Plan Assessment: Patient is an 82-year-old female with a PMH significant for dementia, COPD on O2 as needed, hypothyroidism, paroxysmal A. fib, HLD, HTN, spinal stenosis, DM diet controlled, glaucoma, anxiety, depression who presents from [place] by ambulance after being found unresponsive this morning at approximately 0900 on the day of admission. Vital signs on admission: Temperature 98.1, pulse 58, RR 16, BP 128/50, pulse ox 96% on room air Labs on presentation: WBC 6.6, H/H 11.6/32.8, platelets 189, sodium 141, potassium 4.0, chloride 98, carbon dioxide 32, BUN 19, creatinine 1.0, glucose 104, troponin 0.02, UA shows just trace LE, mild INR elevation at 1.63 Problem list #Recurrent episodes of unresponsiveness, possible TIA versus seizure disorder #Chronic medical problems Plan -Admit to telemetry -Continuous telemetry monitoring -Neurology consult was placed with the on-call neurologist -Carotid Doppler ultrasound -MRI brain -EEG -Serial neural checks -Aspirin, statin, continue home medications Diet: Diabetic diet DVT prophylaxis: Olivia Lazo CODE STATUS: Full code As Ranked By This Provider Problem List: 1. TIA (transient ischemic attack) Core Measures/Misc (03/12) Acute Coronary Syndrome ACS Diagnosis: No Congestive Heart Failure Congestive Heart Failure Diagnosis No Cerebrovascular Accident CVA/TIA Diagnosis: Yes Date Last Known Well: 10/19/17 Symptom Start Date: 10/20/17 Symptom Start Time: 0900 Reason tPA not ordered Medical Contraindication Swallow Evaluation Pass Current/Past Hx AFib/AFlutter Yes No Anticoagulant d/t Medical Contraindication VTE (View Protocol) VTE Risk Factors Age>40 No Mechanical VTE Prophylaxis d/t N/A MechProphylax Ordered No VTE Pharm Prophylaxis d/t NA PharmProphylax ordered Sepsis (View protocol) Sepsis Present: No Cyndi Guzmán MD 10/20/17 2277: Resident Review Statement Resident Statement: examined this patient, discussed with international travel consultant, agreed with international travel consultant, discussed with family Other Findings: 82 YO F with PMH of COPD on O2 as needed, 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 No seizure-like activity or fecal or urinary incontinence. She has no current complaint. Denies CP, SOB, nausea, vomiting, fever or palpitations. Denies one- sided weakness, facial droop, slurring of speech or difficulty swallowing. No recent falls or syncopal episode. Patient has dementia and cannot remember any of the reported events. According to daughter, this is the 3rd time this has happened. First episode was about 1 month ago and second episode happened 2 weeks ago when she had a UTI that was treated. She is a former smoker, no ETOH use. No PMH of seizures. No focal neurological deficits on exam. Passed bedside swallow exam. Assessment 1. Possible TIA vs seizure disorder 2. PAF on apixaban Plan -Admit to Tele -Neuro consult -Asprin and statin -EEG -ECHO -Carotid US -Consider MRI -HbA1C -Neuro checks and seizure precautions -Resume impt home meds -FC -Diabetic diet -Alps and Apixaban of DVT ppx Ana Maria Loco MD 10/20/17 1842: General Information and HPI Allergies/Medications Home Med list Acetaminophen 500 MG TABLET 2 TAB PO TID PAIN (Reported) Acetaminophen (Acephen) 650 MG SUPP.RECT 1 SUPP ND Q4H PRN MILD PAIN/TEMP ( Reported) Acetaminophen 325 MG TABLET 2 TAB PO Q4H PRN MILD PAIN (Reported) Amiodarone (Cordarone) 200 MG TAB 0.5 TAB PO DAILY HEART (Reported) Apixaban (Eliquis) 5 MG TABLET 1 TAB PO BID BLOOD HEALTH (Reported) Aspirin (Aspirin*) 81 MG TAB.CHEW 1 TAB PO DAILY HEART HEALTH (Reported) Atorvastatin Calcium 20 MG TABLET 1 TAB PO QPM HIGH CHOLESTROL (Reported) Bisacodyl 10 MG SUPP.RECT 1 SUP RC PRN CONSTIPATION (Reported) Cyanocobalamin (Vitamin B-12) 1,000 MCG TABLET 1 TAB PO QHS VITAMIN SUPPORT ( Reported) Diclofenac Sodium (Voltaren) 1 % GEL..GRAM. 2 GM TOP BID KNEES (Reported) apply to affected area(s) Ergocalciferol (Vitamin D2) (Vitamin D2) 50,000 UNIT CAPSULE 1 CAP PO EVERY MONTH HEALTH SUPPLEMENT (Reported) ON THE AT 9 AM Fluticasone Propionate 50 MCG/ACTUATION SPRAY.SUSP 1 SPRAY NASB BID ALLERGIES (Reported) Fluticasone/Vilanterol (Breo Ellipta 100-25 Mcg INH) 100 MCG-25 MCG/DOSE BLST.W.DEV 1 PUFF PO DAILY RESP. (Reported) Guaifenesin/Dextromethorphan (Robafen-Dm Syrup) 100 MG-10 MG/5 ML SYRUP 10 ML PO Q4 PRN COUGH (Reported) Hydralazine HCl 50 MG TABLET 1 TAB PO Q12 HIGH BLOOD PRESSURE (Reported) Hydrochlorothiazide 25 MG TABLET 1 TAB PO DAILY HIGH BLOOD PRESSURE (Reported ) Ipratropium/Albuterol Sulfate (Iprat-Albut 0.5-3(2.5) MG/3 Ml) 0.5 MG-3 MG (2.5 MG BASE)/3 ML AMPUL.NEB 1 VIAL PO TID RESP. (Reported) Ipratropium/Albuterol Sulfate (Iprat-Albut 0.5-3(2.5) MG/3 Ml) 0.5 MG-3 MG (2.5 MG BASE)/3 ML AMPUL.NEB 1 VIAL INH Q4H PRN SOB (Reported) Levothyroxine Sodium 112 MCG TABLET 1 TAB PO QHS THYROID (Reported) Magnesium Hydroxide (Milk Of Magnesia) 400 MG/5 ML ORAL.SUSP 30 ML PO DAILY PRN GI (Reported) Memantine HCl (Namenda XR) 14 MG CAP.SPR.24 1 CAP PO DAILY MENTAL HEALTH ( Reported) Menthol (Biofreeze) (Unknown Strength) GEL..ML. (Unknown Dose) TOP BID BACK ( Reported) Menthol (Berri-Freez) 10 % SPRAY 1 SERAFIN TOP BID PRN JOINT PAIN (Reported) Mirtazapine 15 MG TABLET 1 TAB PO QHS SLEEP (Reported) Na Phos,M-B/Na Phos,Di-Ba (Fleet Enema) 19 GRAM-7 GRAM/118 ML ENEMA 1 E RC DAILY PRN CONSTIPATION (Reported) Niacinamide (Niacin) 500 MG TABLET 1 TAB PO QPM SUPPLEMENT (Reported) Oxycodone HCl/Acetaminophen (Percocet 5-325 MG Tablet) 5 MG-325 MG TABLET 0.5 TAB PO BID PAIN (Reported) Oxycodone HCl/Acetaminophen (Percocet 5-325 MG Tablet) 5 MG-325 MG TABLET 0.5 TAB PO Q12H MODERATE/SEVERE PAIN (Reported) Polyethylene Glycol 3350 (Gavilax) 17 GRAM POWD.PACK 1 PAC PO AD CONSTIPATION (Reported) Potassium Chloride 20 MEQ TAB.ER.PRT 1 TAB PO DAILY SUPPLEMENT (Reported) Quetiapine Fumarate (Seroquel) 25 MG TABLET 1 TAB PO QHS MENTAL HEALTH ( Reported) Sennosides/Docusate Sodium (Senna S Tablet) 8.6 MG-50 MG TABLET 1 TAB PO BID CONSTIPATION (Reported) Sodium Chloride 5 % DROPS 2 DROP OS TID LEFT EYE (Reported) Timolol (Betimol) 0.5 % DROPS 1 DRP OU QHS BOTH EYES (Reported) Travoprost (Travatan Z) 0.004 % DROPS 1 GTT OU DAILY BOTH EYES (Reported) Trazodone HCl 50 MG TABLET 0.5 TAB PO QHS SLEEP (Reported) Attending MD Review Statement Attending Statement Attending MD Statement: examined this patient, discuss w/resident/PA/GAS ENGINE OPERATOR COMPRESSORS, agreed w/resident/PA/GAS ENGINE OPERATOR COMPRESSORS, reviewed EMR data (avail) Attending Assessment/Plan: 82F PMH paroxysmal atrial fibrillation on Eliquis, HTN, dementia, sent in from skilled nursing for several episodes of unresponsiveness. Unclear length of episodes, but reportedly lasts minutes. No symptoms prior to or after episodes. Eyes remain open during these episodes. No loss of continence, tongue biting, or seizure like activity noted. Patient has no complaints herself. Neuro exam normal. Concern for TIA vs seizure disorder. Plan: Neuro consult, EEG, ASA, statin, MRI head, carotid doppler, neuro checks
[2017-10-20] MEDS ORDERED: POTASSIUM CHLO20 ME2 PO (17:45)
[2017-10-20] MEDS ORDERED: LEVOTHYROXINE125 MCG PO (17:57)
[2017-10-20] MEDS ORDERED: BIOFREEZE118 ML TOP (18:10)
[2017-10-20] MEDS ORDERED: NIACIN500 M6 PO (18:15)
[2017-10-20] MEDS ORDERED: MILK OF MA400 MG/52 PO (18:25)
[2017-10-20] MEDS ORDERED: BISACODYL10 M1 RC (18:26)
[2017-10-20] MEDS ORDERED: FLEET ENEMA133 ML RC (18:28)
[2017-10-20] MEDS ORDERED: [UNRECOGNIZED DRUG - OTHER] TOP (18:28)
[2017-10-20] MEDS ORDERED: SODIUM CHLORIDE15 M2 OS (18:29)
[2017-10-20] MEDS ORDERED: ACEPHEN650 M1 PR (18:32)
[2017-10-20] MEDS ORDERED: ACETAMINOPHEN325 M2 PO (18:33)
[2017-10-20] MEDS ORDERED: PERCOCET 5-3251 EACH PO (18:34)
[2017-10-20] MEDS ORDERED: IPRAT-ALBUT 0.5-3 ML INH (18:34)
[2017-10-20] MEDS ORDERED: ROBAFEN-DM SYR118 ML PO (18:34)
[2017-10-20 20:00] VITALS: BP 140/72
--- NOTE | 2017-10-20 20:33 | ULTRASOUND REPORT ---
EXAMINATION: US DUPLEX CAROTID AND VERTEBRAL CLINICAL INFORMATION: Recurrent episodes of unresponsiveness. COMPARISON: None available. TECHNIQUE: Real-time ultrasound and Doppler techniques (integrating B-mode 2D vascular images, Doppler spectral analysis and color flow Doppler imaging) were utilized to interrogate the extracranial carotid and vertebral arteries bilaterally. The degree of stenosis determined by criteria similar to NASCET. FINDINGS: Right common carotid artery peak systolic velocity is 80.3 cm/s with maximal end-diastolic velocity of 20.5 cm/s. Right internal carotid artery peak systolic velocity is 143 cm/s with maximal end-diastolic velocity of 45.2 cm/s. There is calcific atherosclerotic plaque at the right carotid bifurcation. There is antegrade flow within the right vertebral artery. Left common carotid artery peak systolic velocity is 103 cm/s with maximal end-diastolic velocity of 22.9 cm/s. Left internal carotid artery peak systolic velocity is 99.1 cm/s with maximal end-diastolic velocity of 22.3 cm/s. There is calcific atherosclerotic plaque at the left carotid bifurcation. There is antegrade flow within the left vertebral artery appear IMPRESSION: - There is a 50-79% stenosis involving the proximal right internal carotid artery by sonographic criteria. - There is a less than 50% stenosis involving the proximal left internal carotid artery by sonographic criteria.
[2017-10-21] VITALS: BP 140/70
[2017-10-21 06:30] VITALS: BP 130/58
--- NOTE | 2017-10-21 07:14 | PN- Housestaff ---
See Addendum Subjective Follow-up For: #Recurrent episodes of unresponsiveness, possible TIA versus seizure disorder #Chronic medical problems Complaints: no complaints Tele-Events Since Last Visit: SB 56-59, 1st degree AVB Review of Systems Constitutional: Reports: no symptoms. Objective Last 24 Hrs of Vital Signs/I&O Vital Signs Date Time Temp Pulse Resp B/P B/P Pulse O2 O2 Flow FiO2 Mean Ox Delivery Rate 10/21 0823 136/72 10/21 08 136/72 10/21 0630 97.9 56 18 130/58 95 10/21 0619 96 10/21 0328 62 96 10/21 0000 98.1 60 18 140/70 93 10/20 2356 56 98 10/20 2210 80 97 10/20 2049 68 140/72 10/20 2000 98.1 58 20 140/72 94 Room Air 10/20 1803 65 20 147/68 94 Room Air 10/20 1527 Room Air Room Air 10/20 1526 98.0 60 20 139/64 94 Room Air 10/20 1319 98.1 58 16 128/50 96 Room Air Intake & Output 10/21 1600 10/21 0800 10/21 0000 Intake Total 720 195 Output Total 300 250 Balance 420 -55 Intake, IV 600 75 Intake, Oral 120 120 Output, Urine 300 250 Patient 205 lb Weight Weight Bed scale Measurement Method Physical Exam General Appearance: Alert, Cooperative, No Acute Distress, using a cpap/autopap Cardiovascular: Regular Rate, Normal S1, Normal S2 Lungs: Clear to Auscultation, Normal Air Movement Abdomen: No Tenderness Extremities: No Edema Current Medications: Current Medications Sig/Lazaro Start time Last Medication Dose Route Stop Time Status Admin Acetaminophen 650 MG Q6P PRN 10/20 1800 AC PO Amiodarone HCl 100 MG DAILY 10/21 899 AC 10/21 PO 0822 Apixaban 5 MG BID 10/20 PO 08 Aspirin 81 MG DAILY 10/21 899 AC 10/21 PO 08 Atorvastatin Calcium 20 MG QPM 10/20 PO 204 Hydralazine HCl 50 MG Q12 10/20 PO 08 Hydrochlorothiazide 25 MG DAILY 10/21 09 AC 10/21 PO 08 Levothyroxine Sodium 0.112 MG 0710/21 0700 AC 10/21 PO 0525 Memantine 10 MG DAILY 10/21 0900 AC 10/21 PO 0822 Mirtazapine 15 MG AT BEDTIME 10/21 2099 AC PO Nicotinic Acid 500 MG AT BEDTIME 10/21 2099 AC PO Oxycodone/ 0.5 TAB Q12H 10/20 2345 AC 10/21 Acetaminophen PO 0344 Polyethylene Glycol 17 GM DAILY 10/21 0900 AC 10/21 PO 0823 Quetiapine Fumarate 25 MG AT BEDTIME 10/21 2099 AC PO Senna/Docusate Sodium 1 TAB BID 10/20 2099 AC 10/21 PO 0823 Sodium Chloride 1,000 ML .[id number] 10/20 1800 AC 10/20 IV 2052 Timolol Maleate 1 GTT AT BEDTIME 10/21 2099 AC OPH Trazodone HCl 25 MG AT BEDTIME 10/20 2344 AC 10/21 PO 0343 Last 24 Hrs of Lab/Tolu Results Last 24 Hrs of Labs/Mics: Laboratory Tests 10/21/17 0645: Anion Gap 11, Estimated GFR 60, BUN/Creatinine Ratio 18.9, CBC w Diff Pending, WBC Pending, RBC Pending, Hgb Pending, Hct Pending, MCV Pending, MCH Pending, MCHC Pending, RDW Pending, Plt Count Pending, MPV Pending 10/20/17 1519: Urine Color YEL, Urine Clarity CLEAR, Urine pH 7.0, Ur Specific [place] 1.015, Urine Protein NEG, Urine Ketones NEG, Urine Nitrite NEG, Urine Bilirubin NEG, Urine Urobilinogen 0.2, Ur Leukocyte Esterase TRACE H, Ur Microscopic SEDIMENT EXAMINED, Urine RBC RARE, Urine WBC RARE, Ur Epithelial Cells FEW, Urine Hemoglobin NEG, Urine Glucose NEG 10/20/17 1410: Anion Gap 11, Estimated GFR 53 L, BUN/Creatinine Ratio 19.0, Glucose 104 H, Calcium 9.1, Total Bilirubin 0.8, AST 20, ALT 21, Alkaline Phosphatase 65, Troponin I 0.02, Total Protein 6.8, Albumin 4.0, Globulin 2.8, Albumin/Globulin Ratio 1.4, PT 17.8 H, INR 1.63 H, APTT 35, CBC w Diff NO MAN DIFF REQ, RBC 3.47 L, MCV 94.6, MCH 33.4 H, MCHC 35.3, RDW 12.5, MPV 10.8 H, Gran % 70.6, Lymphocytes % 18.6 L, Monocytes % 7.4, Eosinophils % 2.8, Basophils % 0.6, Absolute Granulocytes 4.6, Absolute Lymphocytes 1.2, Absolute Monocytes 0.5, Absolute Eosinophils 0.2, Absolute Basophils 0 Microbiology 10/20 1744 URINE ROUT: Urine Culture - COLB 10/20 1455 BLOOD: Blood Culture - RECD 10/20 1410 BLOOD: Blood Culture - RECD Assessment/Plan Assessment: Patient is an 82-year-old female with a PMH significant for dementia, COPD on O2 as needed, hypothyroidism, paroxysmal A. fib, HLD, HTN, spinal stenosis, DM diet controlled, glaucoma, anxiety, depression who presents from [facility] by ambulance after being found unresponsive this morning at approximately 0900 on the day of admission. This is the 3rd episode of silmiar symptoms in the past month or so. Assessment Problem list #Recurrent episodes of unresponsiveness, possible TIA versus seizure disorder #PAF on apixaban #T2DM #Chronic medical contions Plan #Recurrent episodes of unresponsiveness, possible TIA versus seizure disorder -Continue Tele monitoring -Neuro consult placed yesterday -Continue asprin and statin -EEG -ECHO -Carotid US -MRI brain -Neuro checks and seizure precautions -Resume impt home meds #PAF -Continue Apixaban -Continue amiodarone #Diet controlled T2DM -Check HbA1C -Diabetic diet -Full code -Diabetic diet -Alps and Apixaban of DVT ppx Problem List: 1. TIA (transient ischemic attack) 2. Dementia Pain Ratin Pain Location: generalized Pain Goal: Remain pain free Pain Plan: cont. current mgt Tomorrow's Labs & Rationales: cbc, bep
[2017-10-21 08:33] LABS: ABSOLUTE BASOPHIL COUNT 0 /CUMM (0.0-0.2); ABSOLUTE EOSINOPHIL COUNT 0.1 /CUMM (0.0-0.7); ABSOLUTE LYMPH COUNT 1.2 /CUMM (1.2-3.4); ABSOLUTE MONOCYTE COUNT 0.5 /CUMM (0.10-0.60); BASOPHIL % 0.5 % (0.0-2.0); EOSINOPHIL % 1.8 % (0-5); HEMATOCRIT 30.8 % (37-47); MEAN CORPUSCULAR HGB 33.2 PG (27.0-31.0); MEAN CORPUSCULAR HGB CONC 34.1 G/DL (33.0-37.0); MEAN CORPUSCULAR VOLUME 97.4 FL (81.0-99.0); MEAN PLATELET VOLUME 10.9 FL (7.4-10.4); PLATELET COUNT 156 /CUMM (130-400); RBC DISTRIBUTION WIDTH 12.6 % (11.5-14.5); RED BLOOD CELL CT 3.17 /CUMM (4.20-5.40); WHITE BLOOD CELL COUNT 6.9 /CUMM (4.8-10.8)
--- NOTE | 2017-10-21 12:30 | Cons- Neurology ---
General Information and HPI Consulting Request Date of Consult: 10/21/17 Requested By: Ana Maria Loco MD Reason for Consult: Loss of consciousness Source of Information: patient, old records Exam Limitations: dementia History of Present Illness: This is an 82-year-old woman who returns to the hospital once again due to another episode of change in mental status. As been experiencing episodes of losing consciousness and being found unconscious. This time around she was found unresponsive and he took her a long time to revive. She was confused and lethargic. However no seizure was witnessed. And in fact no seizure activity has ever been witnessed to this point despite this happening multiple times. At baseline she has dementia and is disoriented to time and place. No other focal complaints. Allergies/Medications Allergies: Coded Allergies: morphine (Intermediate, VIIOLENT GI UPSET 10/20/17) UNSURE OF REACTION, W10 FROM [facility] DID NOT STATE,PT POOR HISTORIAN AND AMS nitrofurantoin (From MACROBID) (Intermediate, ?? UNSURE 10/20/17) UNSURE OF REACTION, W10 FROM [facility] DID NOT STATE ON PAPERWORK, PT POOR HISTORIAN AND AMS hydromorphone (?? UNSURE 10/20/17) UNSURE OF REACTION, W10 FROM [facility] DID NOT STATE, PT POOR HISTORIAN AND AMS lisinopril (UNKNOWN 10/20/17) Home Med List: Acetaminophen 500 MG TABLET 2 TAB PO TID PAIN (Reported) Acetaminophen (Acephen) 650 MG SUPP.RECT 1 SUPP FL Q4H PRN MILD PAIN/TEMP ( Reported) Acetaminophen 325 MG TABLET 2 TAB PO Q4H PRN MILD PAIN (Reported) Amiodarone (Cordarone) 200 MG TAB 0.5 TAB PO DAILY HEART (Reported) Apixaban (Eliquis) 5 MG TABLET 1 TAB PO BID BLOOD HEALTH (Reported) Aspirin (Aspirin*) 81 MG TAB.CHEW 1 TAB PO DAILY HEART HEALTH (Reported) Atorvastatin Calcium 20 MG TABLET 1 TAB PO QPM HIGH CHOLESTROL (Reported) Bisacodyl 10 MG SUPP.RECT 1 SUP RC PRN CONSTIPATION (Reported) Cyanocobalamin (Vitamin B-12) 1,000 MCG TABLET 1 TAB PO QHS VITAMIN SUPPORT ( Reported) Diclofenac Sodium (Voltaren) 1 % GEL..GRAM. 2 GM TOP BID KNEES (Reported) apply to affected area(s) Ergocalciferol (Vitamin D2) (Vitamin D2) 50,000 UNIT CAPSULE 1 CAP PO EVERY MONTH HEALTH SUPPLEMENT (Reported) ON THE 6TH AT 9 AM Fluticasone Propionate 50 MCG/ACTUATION SPRAY.SUSP 1 SPRAY NASB BID ALLERGIES (Reported) Fluticasone/Vilanterol (Breo Ellipta 100-25 Mcg INH) 100 MCG-25 MCG/DOSE BLST.W.DEV 1 PUFF PO DAILY RESP. (Reported) Guaifenesin/Dextromethorphan (Robafen-Dm Syrup) 100 MG-10 MG/5 ML SYRUP 10 ML PO Q4 PRN COUGH (Reported) Hydralazine HCl 50 MG TABLET 1 TAB PO Q12 HIGH BLOOD PRESSURE (Reported) Hydrochlorothiazide 25 MG TABLET 1 TAB PO DAILY HIGH BLOOD PRESSURE (Reported ) Ipratropium/Albuterol Sulfate (Iprat-Albut 0.5-3(2.5) MG/3 Ml) 0.5 MG-3 MG (2.5 MG BASE)/3 ML AMPUL.NEB 1 VIAL PO TID RESP. (Reported) Ipratropium/Albuterol Sulfate (Iprat-Albut 0.5-3(2.5) MG/3 Ml) 0.5 MG-3 MG (2.5 MG BASE)/3 ML AMPUL.NEB 1 VIAL INH Q4H PRN SOB (Reported) Levothyroxine Sodium 112 MCG TABLET 1 TAB PO QHS THYROID (Reported) Magnesium Hydroxide (Milk Of Magnesia) 400 MG/5 ML ORAL.SUSP 30 ML PO DAILY PRN GI (Reported) Memantine HCl (Namenda XR) 14 MG CAP.SPR.24 1 CAP PO DAILY MENTAL HEALTH ( Reported) Menthol (Biofreeze) (Unknown Strength) GEL..ML. (Unknown Dose) TOP BID BACK ( Reported) Menthol (Berri-Freez) 10 % SPRAY 1 SERAFIN TOP BID PRN JOINT PAIN (Reported) Mirtazapine 15 MG TABLET 1 TAB PO QHS SLEEP (Reported) Na Phos,M-B/Na Phos,Di-Ba (Fleet Enema) 19 GRAM-7 GRAM/118 ML ENEMA 1 E RC DAILY PRN CONSTIPATION (Reported) Niacinamide (Niacin) 500 MG TABLET 1 TAB PO QPM SUPPLEMENT (Reported) Oxycodone HCl/Acetaminophen (Percocet 5-325 MG Tablet) 5 MG-325 MG TABLET 0.5 TAB PO BID PAIN (Reported) Oxycodone HCl/Acetaminophen (Percocet 5-325 MG Tablet) 5 MG-325 MG TABLET 0.5 TAB PO Q12H MODERATE/SEVERE PAIN (Reported) Polyethylene Glycol 3350 (Gavilax) 17 GRAM POWD.PACK 1 PAC PO AD CONSTIPATION (Reported) Potassium Chloride 20 MEQ TAB.ER.PRT 1 TAB PO DAILY SUPPLEMENT (Reported) Quetiapine Fumarate (Seroquel) 25 MG TABLET 1 TAB PO QHS MENTAL HEALTH ( Reported) Sennosides/Docusate Sodium (Senna S Tablet) 8.6 MG-50 MG TABLET 1 TAB PO BID CONSTIPATION (Reported) Sodium Chloride 5 % DROPS 2 DROP OS TID LEFT EYE (Reported) Timolol (Betimol) 0.5 % DROPS 1 DRP OU QHS BOTH EYES (Reported) Travoprost (Travatan Z) 0.004 % DROPS 1 GTT OU DAILY BOTH EYES (Reported) Trazodone HCl 50 MG TABLET 0.5 TAB PO QHS SLEEP (Reported) Current Medications: Current Medications Sig/Lazaro Start time Last Medication Dose Route Stop Time Status Admin Acetaminophen 650 MG Q6P PRN 10/20 1800 AC PO Amiodarone HCl 100 MG DAILY 10/21 09 AC 10/21 PO 0822 Apixaban 5 MG BID 10/20 2099 AC 10/21 PO 0822 Aspirin 81 MG DAILY 10/21 09 AC 10/21 PO 0822 Atorvastatin Calcium 20 MG QPM 10/20 2100 AC 10/20 PO 2048 Hydralazine HCl 50 MG Q12 10/20 2100 AC 10/21 PO 0823 Hydrochlorothiazide 25 MG DAILY 10/21 09 AC 10/21 PO 0822 Levothyroxine Sodium 0.112 MG 0700 10/21 0700 AC 10/21 PO 0525 Memantine 10 MG DAILY 10/21 09 AC 10/21 PO 0822 Mirtazapine 15 MG AT BEDTIME 10/21 2100 AC PO Nicotinic Acid 500 MG AT BEDTIME 10/21 2100 AC PO Oxycodone/ 0.5 TAB Q12H 10/20 2345 AC 10/21 Acetaminophen PO 0344 Polyethylene Glycol 17 GM DAILY 10/21 09 AC 10/21 PO 0823 Quetiapine Fumarate 25 MG AT BEDTIME 10/21 2100 AC PO Senna/Docusate Sodium 1 TAB BID 10/20 2100 AC 10/21 PO 0823 Sodium Chloride 1,000 ML .[id number] 10/20 1800 AC 10/20 IV 2052 Timolol Maleate 1 GTT AT BEDTIME 10/21 2100 AC OPH Trazodone HCl 25 MG AT BEDTIME 10/20 2345 AC 10/21 PO 0343 Review of Systems Review of Systems: As per HPI otherwise negative to the 10 point complete review of system. Past History Travel History Traveled to [place] past 21 day No Medical History Blood Transfusion Hx: No Neurological: dementia EENT: glaucoma Cardiovascular: AFIB, hyperlipidemia Respiratory: COPD Gastrointestinal: NONE Hepatic: NONE Renal: NONE Musculoskeletal: osteoarthritis, SPINAL STENOSIS LEG FRACTURE Psychiatric: depression Endocrine: diabetes, hypothyroidism, (BORDERLINE DM) Blood Disorders: VIT D DEF Cancer(s): NONE ACADEMIC PHYSICIAN/Reproductive: NONE Surgical History Surgical History: non-contributory Family History Relations & Conditions If Any: Relation not specified for: *No pertinent family history Psychosocial History Where Do You Live? Long Term Facility Smoking Status: Former Smoker ETOH Use: denies use Illicit Drug Use: denies illicit drug use Living Will? yes Exam & Diagnostic Data Vital Signs and I&O Vital Signs Date Time Temp Pulse Resp B/P B/P Pulse O2 O2 Flow FiO2 Mean Ox Delivery Rate 10/21 0823 136/72 10/21 0822 136/72 10/21 0630 97.9 56 18 130/58 95 10/21 0619 96 10/21 0328 62 96 10/21 0000 98.1 60 18 140/70 93 10/20 2356 56 98 10/20 2210 80 97 10/20 2049 68 140/72 10/20 2000 98.1 58 20 140/72 94 Room Air 10/20 1803 65 20 147/68 94 Room Air 10/20 1527 Room Air Room Air 10/20 1526 98.0 60 20 139/64 94 Room Air 10/20 1319 98.1 58 16 128/50 96 Room Air Intake & Output 10/21 1600 10/21 0800 10/21 0000 Intake Total 720 195 Output Total 100 300 250 Balance -100 420 -55 Intake, IV 600 75 Intake, Oral 120 120 Output, Urine 100 300 250 Patient 205 lb Weight Weight Bed scale Measurement Method Physical Exam: General: The patient is in no distress. Pleasant and cooperative. MSE: Alert but disoriented to time. Knows place. Does not know who the president is. Good attention and concentration. Good short-term memory and fund of knowledge reflected through our conversation. Language is fluent with good comprehension and repetition. Cardiovascular: S1 and S2 are normal, regular rate and rhythm, and normal pedal pulses. Vision: Fundoscopic exam does not reveal any abnormalties. Visual wayne are intact. Neurological: Extra ocular movements intact, SERG, face is symmetric, tongue midline, uvula raises equally in the midline, V1-V3 sensation to touch is intact and equal bilaterallty, sternocleidomastoid and trapezius are strong on both sides, muscles of mastication are strong. No dysarthria noted. Motor exam reveals no abnormality of strength. Power is 5-5 throughout the distribution distally and proximally. Sensory exam did not reveal any deficits to touch, temperature, vibration and proprioception. Reflexes are symmetric bilaterally. Cerebellar exam does not reveal any dysmetria. Rapid alternating movements are intact bilaterally. Gait is steady. Last 48 Hours of Lab Results: Laboratory Tests 10/21 10/20 0645 1519 Chemistry Sodium (137 - 145 mmol/L) 140 Potassium (3.5 - 5.1 mmol/L) 3.5 Chloride (98 - 107 mmol/L) 102 Carbon Dioxide (22 - 30 mmol/L) 27 Anion Gap (5 - 16) 11 BUN (7 - 17 mg/dL) 17 Creatinine (0.5 - 1.0 mg/dL) 0.9 Estimated GFR (>60 ml/min) 60 BUN/Creatinine Ratio (7 - 25 %) 18.9 Hematology CBC w Diff NO MAN DIFF REQ WBC (4.8 - 10.8 /CUMM) 6.9 RBC (4.20 - 5.40 /CUMM) 3.17 L Hgb (12.0 - 16.0 G/DL) 10.5 L Hct (37 - 47 %) 30.8 L MCV (81.0 - 99.0 FL) 97.4 MCH (27.0 - 31.0 PG) 33.2 H MCHC (33.0 - 37.0 G/DL) 34.1 RDW (11.5 - 14.5 %) 12.6 Plt Count (130 - 400 /CUMM) 156 MPV (7.4 - 10.4 FL) 10.9 H Gran % (42.2 - 75.2 %) 73.0 Lymphocytes % (20.5 - 51.1 %) 17.2 L Monocytes % (1.7 - 9.3 %) 7.5 Eosinophils % (0 - 5 %) 1.8 Basophils % (0.0 - 2.0 %) 0.5 Absolute Granulocytes (1.4 - 6.5 /CUMM) 5.0 Absolute Lymphocytes (1.2 - 3.4 /CUMM) 1.2 Absolute Monocytes (0.10 - 0.60 /CUMM) 0.5 Absolute Eosinophils (0.0 - 0.7 /CUMM) 0.1 Absolute Basophils (0.0 - 0.2 /CUMM) 0 Urines Urine Color (YEL,AMB,STR) YEL Urine Clarity (CLEAR) CLEAR Urine pH (5.0 - 8.0) 7.0 Ur Specific [place] (1.001 - 1.035) 1.015 Urine Protein (NEG,<30 MG/DL) NEG Urine Ketones (NEG) NEG Urine Nitrite (NEG) NEG Urine Bilirubin (NEG) NEG Urine Urobilinogen (0.1 - 1.0 EU/dl) 0.2 Ur Leukocyte Esterase (NEG) TRACE H Ur Microscopic SEDIMENT EXAMINED Urine RBC (0 - 5 /HPF) RARE Urine WBC (0 - 2 /HPF) RARE Ur Epithelial Cells (NONE,FEW) FEW Urine Hemoglobin (NEG) NEG Urine Glucose (N MG/DL) NEG 10/20 1410 Chemistry Sodium (137 - 145 mmol/L) 141 Potassium (3.5 - 5.1 mmol/L) 4.0 Chloride (98 - 107 mmol/L) 98 Carbon Dioxide (22 - 30 mmol/L) 32 H Anion Gap (5 - 16) 11 BUN (7 - 17 mg/dL) 19 H Creatinine (0.5 - 1.0 mg/dL) 1.0 Estimated GFR (>60 ml/min) 53 L BUN/Creatinine Ratio (7 - 25 %) 19.0 Glucose (65 - 99 mg/dL) 104 H Calcium (8.4 - 10.2 mg/dL) 9.1 Total Bilirubin (0.2 - 1.3 mg/dL) 0.8 AST (14 - 36 U/L) 20 ALT (9 - 52 U/L) 21 Alkaline Phosphatase (<127 U/L) 65 Troponin I (< 0.11 ng/ml) 0.02 Total Protein (6.3 - 8.2 g/dL) 6.8 Albumin (3.5 - 5.0 g/dL) 4.0 Globulin (1.9 - 4.2 gm/dL) 2.8 Albumin/Globulin Ratio (1.1 - 2.2 %) 1.4 Coagulation PT (9.4 - 12.5 SEC) 17.8 H INR (0.90 - 1.19) 1.63 H APTT (25 - 37 SEC) 35 Hematology CBC w Diff NO MAN DIFF REQ WBC (4.8 - 10.8 /CUMM) 6.6 RBC (4.20 - 5.40 /CUMM) 3.47 L Hgb (12.0 - 16.0 G/DL) 11.6 L Hct (37 - 47 %) 32.8 L MCV (81.0 - 99.0 FL) 94.6 MCH (27.0 - 31.0 PG) 33.4 H MCHC (33.0 - 37.0 G/DL) 35.3 RDW (11.5 - 14.5 %) 12.5 Plt Count (130 - 400 /CUMM) 189 MPV (7.4 - 10.4 FL) 10.8 H Gran % (42.2 - 75.2 %) 70.6 Lymphocytes % (20.5 - 51.1 %) 18.6 L Monocytes % (1.7 - 9.3 %) 7.4 Eosinophils % (0 - 5 %) 2.8 Basophils % (0.0 - 2.0 %) 0.6 Absolute Granulocytes (1.4 - 6.5 /CUMM) 4.6 Absolute Lymphocytes (1.2 - 3.4 /CUMM) 1.2 Absolute Monocytes (0.10 - 0.60 /CUMM) 0.5 Absolute Eosinophils (0.0 - 0.7 /CUMM) 0.2 Absolute Basophils (0.0 - 0.2 /CUMM) 0 Imaging/Other Studies: FINDINGS: There is no acute intracranial hemorrhage or abnormal extra-axial collection. No intracranial mass effect or midline shift. Lateral and third ventricles are normal. No hydrocephalus. Scattered foci of hypoattenuation are visualized within the periventricular white matter. Howell-white matter differentiation is otherwise grossly preserved and there is no evidence of acute territorial infarct. The calvarium and skull base are intact. Mastoid air cells and middle ear cavities are well-aerated. Visualized paranasal sinuses are well-aerated. IMPRESSION: There are scattered chronic small vessel ischemic changes within the periventricular white matter. No evidence of acute territorial infarct or hemorrhage. CD: 50-69% R ICA stenosis. Assessment/Plan Assessment: 82-year-old woman with dementia and cardiovascular risk factors who again is admitted for an event of complete loss of consciousness followed by slow recovery. This is not suggestive of TIA but rather if anything more of a seizure. Seizures occur at higher frequency in neurodegenerative disease such as Alzheimer's. Recommendations: 1. Recommend an EEG. 2. Once the EEG is obtained we'll probably discharge her on an antiepileptic such as Keppra regardless of results. 3. No further testing is warranted as she is already on anticoagulation and maximal stroke prevention. Consult Acknowledgment - Thank you for your consult request.
[2017-10-21 14:13] VITALS: BP 128/68
--- NOTE | 2017-10-21 15:24 | MRI REPORT ---
EXAMINATION: MR BRAIN WITHOUT AND WITH CONTRAST CLINICAL INFORMATION: Recurrent episodes of unresponsiveness. Assess for TIA/stroke. COMPARISON: CT scan of the head 10/20/2017. TECHNIQUE: MRI of the brain was obtained using routine sequences before and after the intravenous administration of 10 mL of Gadavist. FINDINGS: No diffusion abnormalities are identified to suggest an acute or subacute infarct. No mass effect or midline shift is seen. The ventricles and sulci are commensurately prominent consistent with moderate diffuse volume loss. There are moderate areas of increased T2 and FLAIR signal in the periventricular and subcortical white matter, consistent with chronic microvascular ischemic disease. There is mild focal prominence of the extra-axial CSF in the lateral right frontal region, which may be consistent with a small arachnoid cyst. No significant mass effect on the adjacent brain parenchyma is noted. The brainstem and cerebellum are normal. On postcontrast imaging, there is no abnormal parenchymal or leptomeningeal enhancement. No pathologic magnetic susceptibility artifact is identified on the gradient refocused acquisition. The craniovertebral junction, marrow signal, and midline structures are normal. The major intracranial flow-voids at the level of the afognak of [place] are preserved. There has been a left lens extraction. The dural venous sinus flow-voids are maintained. The mastoid air cells and paranasal sinuses are well-aerated. IMPRESSION: 1. There are no acute bleeds or infarcts. There are no masses or areas of abnormal enhancement. 2. There is diffuse volume loss and there are chronic microvascular ischemic changes.
[2017-10-21 22:13] VITALS: BP 120/84
[2017-10-22 07:00] VITALS: BP 148/76
[2017-10-22 07:50] LABS: ABSOLUTE BASOPHIL COUNT 0 /CUMM (0.0-0.2); ABSOLUTE EOSINOPHIL COUNT 0.1 /CUMM (0.0-0.7); ABSOLUTE GRANULOCYTE CT 3.5 /CUMM (1.4-6.5); ABSOLUTE LYMPH COUNT 1.3 /CUMM (1.2-3.4); ABSOLUTE MONOCYTE COUNT 0.5 /CUMM (0.10-0.60); BASOPHIL % 0.6 % (0.0-2.0); EOSINOPHIL % 2.5 % (0-5); GRANULOCYTE % 63.7 % (42.2-75.2); HEMATOCRIT 30.3 % (37-47); MEAN CORPUSCULAR HGB CONC 33.7 G/DL (33.0-37.0); MEAN CORPUSCULAR VOLUME 97.8 FL (81.0-99.0); MEAN PLATELET VOLUME 11.2 FL (7.4-10.4); PLATELET COUNT 140 /CUMM (130-400); RBC DISTRIBUTION WIDTH 12.7 % (11.5-14.5); WHITE BLOOD CELL COUNT 5.6 /CUMM (4.8-10.8)
--- NOTE | 2017-10-22 08:48 | PN- Housestaff ---
Brayan CM,Jeramy 10/22/17 0848: Subjective Follow-up For: Unresponsive episode Tele-Events Since Last Visit: Sinus joreg 40 -50 Subjective: Patient seen and examined. She is seen sitting upright in bed resting comfortably. She appears to be in no acute distress. She is oriented only to person; she does not know the year or where she is. She believes she is at a senior care. She is concerned that she cannot find her roommate "Suni". She is complaining of some mild knee pain but otherwise feels well. Review of Systems Constitutional: Reports: see HPI. Objective Last 24 Hrs of Vital Signs/I&O Vital Signs Date Time Temp Pulse Resp B/P B/P Pulse O2 O2 Flow FiO2 Mean Ox Delivery Rate 10/22 1014 97.6 55 20 140/70 10/22 0855 140/70 10/22 0855 140/70 10/22 0700 97.6 55 20 148/76 99 10/22 0321 49 92 10/22 0055 62 92 10/22 0000 BIPAP 10/21 2213 99.5 55 20 120/84 94 10/21 2202 54 94 10/21 2024 162/64 10/21 1413 98.5 64 18 128/68 93 Intake & Output 10/22 1600 10/22 0800 10/22 0000 Intake Total 150 100 Output Total Balance 150 100 Intake, Oral 150 100 Patient 93.468 kg Weight Physical Exam General Appearance: Alert, Oriented X3, Cooperative, No Acute Distress Assessment/Plan Assessment: 82 year old woman with multiple medical problems sent in from her [facility] facility after being found somnolent / lethargic and below her mental baseline. Patients telemetry remains unremarkable. Clinically she appears demented but at her baseline. She is independent with ambulation and steady on her feet. MRI head is unremarkable other than chronic changes. Carotid doplled demonstrated a 50-79% stenosis of the right ICA. Echocardiogram was performed this morning, report is pending. EEG is to be performed tomorrow. Problem List -Altered mental status with lethargy, possible TIA/Seizures -New Knee pain -Atrial Fibrillation, on Eliquis -Non-insulin dependent Diabetes Mellitus -Dementia -Hypertension -Hyperlipidemia -Anxiety / Depression -Glaucoma -Spinal Stenosis Plan -Continue telemetry floor admission -Telemetry monitoring -Start Voltaren gel for knee pain -Continue home meds: amiodarone, eliquis, aspirin, atorvastatin, hydralazine, HCTZ, levothyroxine, memantine, mirtazipine, melatonin, NTG, omeprazole, phosphate, miralax, potassium -Neurology following for possible seizure/TIA evaluation -Follow up echocardiogram -Follow up EEG -Pain control with acetaminophen, percocet -Bowel regmine: Miralax, senna -Diabetic diet -DVT PPx with Eliquis -FULL CODE Problem List: 1. Dementia Pain Ratin Pain Location: Knee Pain Goal: Pain 4 or less Pain Plan: See asssessment Tomorrow's Labs & Rationales: None Gustavo Torrez MD 10/22/17 6349: Attending MD Review Statement Attending Statement Attending MD Statement: examined this patient, discuss w/resident/PA/EXECUTIVE COACH, reviewed EMR data (avail) Attending Assessment/Plan: Ms. Oh 82y/o F PMH paroxysmal atrial fibrillation on eliquis, HTN, dementia, sent in from senior care for several episodes of unresponsiveness. Unclear length of episodes, but reportedly lasts minutes. No symptoms prior to or after episodes. Eyes remain open during these episodes. No loss of continence , tongue biting, or seizure like activity noted. Neuro exam non focal. Concern for TIA vs seizure disorder. No acute events overnight. Patient doing well this morning without any symptoms. Assessment: 1. Recurrent episodes of unresponsivenss - TIA/ Seizure disorder 2. Paroxysmal A. fib 3. Type II DM 4. Bilateral knee pain Plan Obtain EEG. Once EEG is obtained - likely discharge on [facility] - seen by Neurology Continue with aspirin and statin Voltaren gel EEG, ECHO, Carotid US and MRI brain are not urgenty necessary as per Neuro as she is already on AC and maximal stroke prevention measures
[2017-10-22 10:14] VITALS: BP 140/70
[2017-10-22 13:56] VITALS: BP 114/58
[2017-10-22 22:46] VITALS: BP 160/98
[2017-10-23 06:57] VITALS: BP 150/88
--- NOTE | 2017-10-23 07:25 | PN- Housestaff ---
Elias CM,Edwin 10/23/17 0725: Subjective Follow-up For: epsisodes of unresponsiveness, possible TIAs seizures anteroseptal dyskinesia seen on echo Tele-Events Since Last Visit: Sinus rhythm with HR 40s60s Subjective: Patient was seen and examined at bedside. She was resting comfortably she had no acute events overnight. Patient is a poor historian secondary to her advanced dementia however she reports that she is not well today. She is unable to articulate exactly what is bothering her, she states that she is not in any pain, other than her chronic knee pain, and she is not short of breath short of breath. Review systems is overall negative however she continues to that she feels unwell. Review of Systems Constitutional: Reports: malaise. Denies: chills, fever. EENTM: Reports: no symptoms. Cardiovascular: Reports: no symptoms. Respiratory: Reports: no symptoms. Gastrointestinal: Reports: no symptoms. Genitourinary: Reports: no symptoms. Musculoskeletal: Reports: no symptoms. Objective Last 24 Hrs of Vital Signs/I&O Vital Signs Date Time Temp Pulse Resp B/P B/P Pulse O2 O2 Flow FiO2 Mean Ox Delivery Rate 10/23 0657 96.9 51 18 150/88 97 BIPAP 10/23 0600 58 92 10/23 0301 53 93 10/23 0030 50 94 10/23 0000 94 CPAP 10/22 2246 97.8 56 19 160/98 94 10/22 2140 59 94 10/22 2128 160/58 10/22 1356 98.8 52 20 114/58 93 10/22 1014 97.6 55 20 140/70 10/22 0855 140/70 10/22 0855 140/70 Intake & Output 10/23 0800 10/23 0000 10/22 1600 Intake Total 100 200 400 Output Total 650 Balance 100 200 -250 Intake, Oral 100 200 400 Output, Urine 650 Patient 206 lb Weight Physical Exam General Appearance: Alert, Cooperative, No Acute Distress Sepsis Skin Exam (color): Normal for Ethnicity Cardiovascular: Regular Rate, Normal S1, Normal S2 Lungs: Clear to Auscultation, Normal Air Movement Abdomen: Normal Bowel Sounds, Soft, No Tenderness Neurological: Normal Speech, Normal Tone, Sensation Intact, Cranial Nerves 3-12 NL Extremities: No Clubbing, No Cyanosis, No Edema Current Medications: Current Medications Sig/Lazaro Start time Last Medication Dose Route Stop Time Status Admin Acetaminophen 650 MG Q6P PRN 10/20 1800 AC PO Amiodarone HCl 100 MG DAILY 10/21 0900 AC 10/22 PO 0855 Apixaban 5 MG BID 10/20 2099 AC 10/22 PO 2127 Aspirin 81 MG DAILY 10/21 0900 AC 10/22 PO 0855 Atorvastatin Calcium 20 MG QPM 10/20 2099 AC 10/22 PO 2127 Diclofenac Sodium 1 SERAFIN BID 10/22 2100 AC 10/22 TOP 2128 Diclofenac Sodium 1 SERAFIN 4 TIMES/DAY 10/22 1045 DC TOP Hydralazine HCl 50 MG Q12 10/20 2100 AC 10/22 PO 2128 Hydrochlorothiazide 25 MG DAILY 10/21 0900 AC 10/22 PO 0855 Levothyroxine Sodium 0.112 MG 0700 10/21 0700 AC 10/23 PO 0541 Memantine 10 MG DAILY 10/21 0900 AC 10/22 PO 0855 Mirtazapine 15 MG AT BEDTIME 10/21 2099 AC 10/22 PO 2128 Nicotinic Acid 500 MG AT BEDTIME 10/21 2100 AC 10/22 PO 8 Oxycodone/ 0.5 TAB Q12 10/22 2130 AC 10/22 Acetaminophen PO 7 Oxycodone/ 0.5 TAB Q12H 10/20 2345 DC 10/22 Acetaminophen PO 0903 Polyethylene Glycol 17 GM DAILY 10/21 0900 AC 10/22 PO 0854 Quetiapine Fumarate 25 MG AT BEDTIME 10/21 2100 AC 10/22 PO 2128 Senna/Docusate Sodium 1 TAB BID 10/20 2099 AC 10/22 PO 212 Timolol Maleate 1 GTT AT BEDTIME 10/21 2100 AC 10/22 OPH 9 Trazodone HCl 25 MG AT BEDTIME 10/20 2345 AC 10/22 PO 2128 Orders ECHO Findings: Left Ventricle Left ventricular cavity size normal. Left ventricular wall thickness at upper limits of normal. The anteroseptum is dyskinetic. The remaining alas contract normally. Left ventricular ejection fraction is estimated at 50-55 %. Right Ventricle Normal right ventricular size and function. Right Atrium Right atrium not well visualized, grossly normal. Left Atrium Mild to moderate left atrial dilatation. Mitral Valve Moderate mitral annular calcification. Mild mitral stenosis. Trace mitral regurgitation. Aortic Valve Diffuse thickening of the aortic valve cusps with reduced excursion. Mild aortic stenosis. Tricuspid Valve Tricuspid valve not well visualized, grossly normal. Trace tricuspid regurgitation. Unable to estimate the right ventricular systolic pressure. Pulmonic Valve Pulmonic valve not well visualized, grossly normal. Pericardium No pericardial effusion. Great Vessels Normal size aortic root. CONCLUSIONS Technically difficult study. Left ventricular cavity size normal. Left ventricular wall thickness at upper limits of normal. The anteroseptum is dyskinetic. The remaining alas contract normally. Left ventricular ejection fraction is estimated at 50-55 %. Normal right ventricular size and function. Mild to moderate left atrial dilatation. Mild mitral stenosis. Mild aortic stenosis. Assessment/Plan Assessment: Patient is an 82-year-old female with a PMH significant for dementia, COPD on O2 as needed, hypothyroidism, paroxysmal A. fib, HLD, HTN, spinal stenosis, DM diet controlled, glaucoma, anxiety, depression who presents from [facility] by ambulance after being found unresponsive the morning of presentation at approximately 0900 on the day of admission. #Episodes of unresponsiveness, possible seizures Patient had an MRI which showed no acute infarct or bleed, however did show chronic ischemic changes. -Follow-up results of EEG -Per neurology will likely start a antiepileptic medication regardless of results -Continue to follow neurologic recommendations #Anteroseptal dyskinesia seen on echo Patient has a history of paroxysmal A. fib, is anticoagulated with Eliquis. Echocardiogram was done as part of routine workup for suspected TIA. -Cardiology consult placed with Dr. Lewis, will follow up recommendations -continue telemetry monitoring #Chronic medical problems -Continue home medical regimen Diet: Diabetic diet DVT prophylaxis: SarahquJuan richters CODE STATUS: Full code Problem List: 1. Seizures Pain Ratin Pain Location: L knee Pain Goal: Pain 4 or less Pain Plan: pain pathway Tomorrow's Labs & Rationales: Ana Maria Toledo MD 10/23/17 1037: Attending MD Review Statement Attending Statement Attending MD Statement: examined this patient, discuss w/resident/PA/TEAROOM HOST/HOSTESS, agreed w/resident/PA/TEAROOM HOST/HOSTESS, reviewed EMR data (avail) Attending Assessment/Plan: 82F PMH paroxysmal atrial fibrillation on Eliquis, HTN, dementia, sent in from shelter for several episodes of unresponsiveness. Unclear length of episodes, but reportedly lasts minutes. No symptoms prior to or after episodes. Eyes remain open during these episodes. No loss of continence, tongue biting, or seizure like activity noted. Patient has no complaints herself. Neuro exam normal. Concern for TIA vs seizure disorder. Plan: Neuro consult, EEG, ASA, statin, MRI head, carotid doppler, neuro checks
[2017-10-23 09:03] VITALS: BP 142/66
--- NOTE | 2017-10-23 09:05 | ECHOCARDIOGRAM REPORT ---
PINEDA CASTELLANO Age: 82 : 1935 Gender: F Exam Date: 10/22/2017 09:49 Exam Location: [address] Ht (in): 66 Wt (lb): 230 BSA: 2.25 BP: 148 / 76 Ordering Physician: Cyndi Guzmán MD Referring Physician: Cyndi Guzmán MD Technologist: Dot Law [facility] Room Number: 185-01 Indications: TIA Rhythm: Technical Quality: Technically difficult study FINDINGS Left Ventricle Left ventricular cavity size normal. Left ventricular wall thickness at upper limits of normal. The anteroseptum is dyskinetic. The remaining alas contract normally. Left ventricular ejection fraction is estimated at 50-55 %. Right Ventricle Normal right ventricular size and function. Right Atrium Right atrium not well visualized, grossly normal. Left Atrium Mild to moderate left atrial dilatation. Mitral Valve Moderate mitral annular calcification. Mild mitral stenosis. Trace mitral regurgitation. Aortic Valve Diffuse thickening of the aortic valve cusps with reduced excursion. Mild aortic stenosis. Tricuspid Valve Tricuspid valve not well visualized, grossly normal. Trace tricuspid regurgitation. Unable to estimate the right ventricular systolic pressure. Pulmonic Valve Pulmonic valve not well visualized, grossly normal. Pericardium No pericardial effusion. Great Vessels Normal size aortic root. CONCLUSIONS Technically difficult study. Left ventricular cavity size normal. Left ventricular wall thickness at upper limits of normal. The anteroseptum is dyskinetic. The remaining alas contract normally. Left ventricular ejection fraction is estimated at 50-55 %. Normal right ventricular size and function. Mild to moderate left atrial dilatation. Mild mitral stenosis. Mild aortic stenosis. Ilan Villafana M.D. (Electronically Signed) Final Date: 23 October 2017 09:04 MEASUREMENTS (Male / Female) Normal Values 2D ECHO LV Diastolic Diameter PLAX 5.1 cm 4.2 - 5.9 / 3.9 - 5.3 cm LV Systolic Diameter PLAX 4.0 cm 2.1 - 4.0 cm LV Fractional Shortening PLAX 21.6 % 25 - 46 % LV Ejection Fraction 2D Teich 43.5 % IVS Diastolic Thickness 1.3 cm LVPW Diastolic Thickness 1.3 cm LV Relative Wall Thickness 0.5 RV Internal Dim ED PLAX 2.1 cm 1.9 - 3.8 cm LVOT Diameter 1.8 cm Aortic Root Diameter 2.5 cm LA Systolic Diameter LX 4.7 cm 3.0 - 4.0 / 2.7 - 3.8 cm LA Volume 46.0 cm 18 - 58 / 22 - 52 cm Ascending Aorta Diameter 3.0 cm DOPPLER AV Peak Velocity 255.0 cm/s AV Peak Gradient 26.0 mmHg AV Mean Velocity 170.0 cm/s AV Mean Gradient 13.0 mmHg AV Velocity Time Integral 53.6 cm LVOT Peak Velocity 141.0 cm/s LVOT Peak Gradient 8.0 mmHg LVOT Mean Velocity 101.0 cm/s LVOT Mean Gradient 5.0 mmHg LVOT Velocity Time Integral 30.3 cm LVOT Stroke Volume 77.1 cm AV Area Cont Eq vti 1.4 cm AV Area Cont Eq pk 1.4 cm MV Peak Velocity 120.0 cm/s MV Peak Gradient 5.8 mmHg MV Mean Velocity 69.4 cm/s MV Mean Gradient 2.0 mmHg Mitral E Point Velocity 84.4 cm/s Mitral A Point Velocity 119.0 cm/s Mitral E to A Ratio 0.7 MV PHT Velocity 92.3 cm/s MV Deceleration [place] 284.0 cm/s MV Pressure Half Time 97.5 ms MV Area PHT 2.3 cm MV Deceleration Time 383.0 ms TR Peak Velocity 253.0 cm/s TR Peak Gradient 25.6 mmHg Right Atrial Pressure 10.0 mmHg Pulmonary Artery Systolic Pressu 35.6 mmHg Right Ventricular Systolic Press 35.6 mmHg PV Peak Velocity 185.0 cm/s PV Peak Gradient 13.7 mmHg PV Mean Velocity 112.0 cm/s PV Mean Gradient 6.0 mmHg PV Velocity Time Integral 37.8 cm LV E' Lateral Velocity 5.9 cm/s Mitral E to LV E' Lateral Ratio 14.2 LV E' Septal Velocity 5.0 cm/s Mitral E to LV E' Septal Ratio 17.0
[2017-10-23 14:04] VITALS: BP 130/60
--- NOTE | 2017-10-23 14:31 | Cons- Cardiology ---
General Information and HPI Consulting Request Date of Consult: 10/23/17 Requested By: Ana Maria Loco MD Reason for Consult: altered consciousness bradycardia History of Present Illness: Elderly lady with PMH of advanced Alzheimers dementia (+/- vascular), atrial fibrillation on eliquis and amiodarone, diabetes mellitus type 2. consultation requested in the context of yet another episode of alteration of consciousness, where patient is unresponsive and staring straight ahead, with spontaneous resolution and no reported symptoms prior to or following the episode. Duration was a few minutes, as per usual. Patient resides in an assisted livign facility where the episode was witnessed by staff and EMS were called, however patient was back to her baseline upon arrival of EMS. No precipitating factor has been uncovered as of yet. Neurological exam is concordant with her known dementia. Brain imaging does not show any new lesion beside stigmata of microvascular disease and brain atrophy. Neurology is more in favor of seizure activity explaining the events, and EEG results should be available today or tomorrow. During the previous episode, a UTI had been diagnosed but cultures are negative this time. Since her admission on 10/20, patient's HR has been varying 55-70 in general, with short episodes of bradycardia < 55 bpm, however no symptoms were reported during periods of bradycardia. Echocardiogram reveals a dyskinetic septum, with a relatively normal LV anatomy and function. Allergies/Medications Allergies: Coded Allergies: morphine (Intermediate, VIIOLENT GI UPSET 10/20/17) UNSURE OF REACTION, W10 FROM [facility] DID NOT STATE,PT POOR HISTORIAN AND AMS nitrofurantoin (From MACROBID) (Intermediate, ?? UNSURE 10/20/17) UNSURE OF REACTION, W10 FROM [facility] DID NOT STATE ON PAPERWORK, PT POOR HISTORIAN AND AMS hydromorphone (?? UNSURE 10/20/17) UNSURE OF REACTION, W10 FROM [facility] DID NOT STATE, PT POOR HISTORIAN AND AMS lisinopril (UNKNOWN 10/20/17) Home Med List: Acetaminophen 500 MG TABLET 2 TAB PO TID PAIN (Reported) Acetaminophen (Acephen) 650 MG SUPP.RECT 1 SUPP MA Q4H PRN MILD PAIN/TEMP ( Reported) Acetaminophen 325 MG TABLET 2 TAB PO Q4H PRN MILD PAIN (Reported) Amiodarone (Cordarone) 200 MG TAB 0.5 TAB PO DAILY HEART (Reported) Apixaban (Eliquis) 5 MG TABLET 1 TAB PO BID BLOOD HEALTH (Reported) Aspirin (Aspirin*) 81 MG TAB.CHEW 1 TAB PO DAILY HEART HEALTH (Reported) Atorvastatin Calcium 20 MG TABLET 1 TAB PO QPM HIGH CHOLESTROL (Reported) Bisacodyl 10 MG SUPP.RECT 1 SUP RC PRN CONSTIPATION (Reported) Cyanocobalamin (Vitamin B-12) 1,000 MCG TABLET 1 TAB PO QHS VITAMIN SUPPORT ( Reported) Diclofenac Sodium (Voltaren) 1 % GEL..GRAM. 2 GM TOP BID KNEES (Reported) apply to affected area(s) Ergocalciferol (Vitamin D2) (Vitamin D2) 50,000 UNIT CAPSULE 1 CAP PO EVERY MONTH HEALTH SUPPLEMENT (Reported) ON THE 6TH AT 9 AM Fluticasone Propionate 50 MCG/ACTUATION SPRAY.SUSP 1 SPRAY NASB BID ALLERGIES (Reported) Fluticasone/Vilanterol (Breo Ellipta 100-25 Mcg INH) 100 MCG-25 MCG/DOSE BLST.W.DEV 1 PUFF PO DAILY RESP. (Reported) Guaifenesin/Dextromethorphan (Robafen-Dm Syrup) 100 MG-10 MG/5 ML SYRUP 10 ML PO Q4 PRN COUGH (Reported) Hydralazine HCl 50 MG TABLET 1 TAB PO Q12 HIGH BLOOD PRESSURE (Reported) Hydrochlorothiazide 25 MG TABLET 1 TAB PO DAILY HIGH BLOOD PRESSURE (Reported ) Ipratropium/Albuterol Sulfate (Iprat-Albut 0.5-3(2.5) MG/3 Ml) 0.5 MG-3 MG (2.5 MG BASE)/3 ML AMPUL.NEB 1 VIAL PO TID RESP. (Reported) Ipratropium/Albuterol Sulfate (Iprat-Albut 0.5-3(2.5) MG/3 Ml) 0.5 MG-3 MG (2.5 MG BASE)/3 ML AMPUL.NEB 1 VIAL INH Q4H PRN SOB (Reported) Levothyroxine Sodium 112 MCG TABLET 1 TAB PO QHS THYROID (Reported) Magnesium Hydroxide (Milk Of Magnesia) 400 MG/5 ML ORAL.SUSP 30 ML PO DAILY PRN GI (Reported) Memantine HCl (Namenda XR) 14 MG CAP.SPR.24 1 CAP PO DAILY MENTAL HEALTH ( Reported) Menthol (Biofreeze) (Unknown Strength) GEL..ML. (Unknown Dose) TOP BID BACK ( Reported) Menthol (Berri-Freez) 10 % SPRAY 1 SERAFIN TOP BID PRN JOINT PAIN (Reported) Mirtazapine 15 MG TABLET 1 TAB PO QHS SLEEP (Reported) Na Phos,M-B/Na Phos,Di-Ba (Fleet Enema) 19 GRAM-7 GRAM/118 ML ENEMA 1 E RC DAILY PRN CONSTIPATION (Reported) Niacinamide (Niacin) 500 MG TABLET 1 TAB PO QPM SUPPLEMENT (Reported) Oxycodone HCl/Acetaminophen (Percocet 5-325 MG Tablet) 5 MG-325 MG TABLET 0.5 TAB PO BID PAIN (Reported) Oxycodone HCl/Acetaminophen (Percocet 5-325 MG Tablet) 5 MG-325 MG TABLET 0.5 TAB PO Q12H MODERATE/SEVERE PAIN (Reported) Polyethylene Glycol 3350 (Gavilax) 17 GRAM POWD.PACK 1 PAC PO AD CONSTIPATION (Reported) Potassium Chloride 20 MEQ TAB.ER.PRT 1 TAB PO DAILY SUPPLEMENT (Reported) Quetiapine Fumarate (Seroquel) 25 MG TABLET 1 TAB PO QHS MENTAL HEALTH ( Reported) Sennosides/Docusate Sodium (Senna S Tablet) 8.6 MG-50 MG TABLET 1 TAB PO BID CONSTIPATION (Reported) Sodium Chloride 5 % DROPS 2 DROP OS TID LEFT EYE (Reported) Timolol (Betimol) 0.5 % DROPS 1 DRP OU QHS BOTH EYES (Reported) Travoprost (Travatan Z) 0.004 % DROPS 1 GTT OU DAILY BOTH EYES (Reported) Trazodone HCl 50 MG TABLET 0.5 TAB PO QHS SLEEP (Reported) Review of Systems Review of Systems Cardiovascular: Denies: no symptoms, chest pain, orthopena, palpitations. Respiratory: Denies: cough, hemoptysis, short of breath, sputum production. GI: Denies: abdominal pain, melena, nausea, vomiting. Genitourinary: Denies: dysuria, hematuria. Neurological/Psychological: Denies: see HPI. 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 Alf Facility Smoking Status: Former Smoker ETOH Use: denies use Illicit Drug Use: denies illicit drug use Living Will? yes Exam & Diagnostic Data Vital Signs and I&O Vital Signs Date Time Temp Pulse Resp B/P B/P Pulse O2 O2 Flow FiO2 Mean Ox Delivery Rate 10/23 1404 98.1 59 18 130/60 92 Room Air 10/23 0905 58 142/66 10/23 0905 58 142/66 10/23 0903 58 142/66 10/23 0800 Room Air 10/23 0657 96.9 51 18 150/88 97 BIPAP 10/23 0600 58 92 10/23 0301 53 93 10/23 0030 50 94 10/23 0000 94 CPAP 10/22 2246 97.8 56 19 160/98 94 10/22 2140 59 94 10/22 2128 160/58 Intake & Output 10/23 1600 10/23 0800 10/23 0000 10/22 1600 10/22 0800 10/22 0000 Intake Total 100 200 400 150 100 Output Total 650 Balance 100 200 -250 150 100 Intake, Oral 100 200 400 150 100 Output, Urine 650 Patient 206 lb 206 lb Weight Physical Exam: General Appearance: Alert, Cooperative, No Acute Distress, using a cpap/autopap Cardiovascular: irregular, no rub, no galop, 2/6 systolic ejection murmur ULSB Lungs: Clear to Auscultation, Normal Air Movement Abdomen: No Tenderness Extremities: No Edema Labs/Tolu Results: Laboratory Tests 10/23 611 Hematology CBC w Diff NO MAN DIFF REQ WBC (4.8 - 10.8 /CUMM) 5.6 RBC (4.20 - 5.40 /CUMM) 3.10 L Hgb (12.0 - 16.0 G/DL) 10.2 L Hct (37 - 47 %) 30.3 L MCV (81.0 - 99.0 FL) 97.8 MCH (27.0 - 31.0 PG) 33.0 H MCHC (33.0 - 37.0 G/DL) 33.7 RDW (11.5 - 14.5 %) 12.7 Plt Count (130 - 400 /CUMM) 140 MPV (7.4 - 10.4 FL) 11.2 H Gran % (42.2 - 75.2 %) 63.7 Lymphocytes % (20.5 - 51.1 %) 24.2 Monocytes % (1.7 - 9.3 %) 9.0 Eosinophils % (0 - 5 %) 2.5 Basophils % (0.0 - 2.0 %) 0.6 Absolute Granulocytes (1.4 - 6.5 /CUMM) 3.5 Absolute Lymphocytes (1.2 - 3.4 /CUMM) 1.3 Absolute Monocytes (0.10 - 0.60 /CUMM) 0.5 Absolute Eosinophils (0.0 - 0.7 /CUMM) 0.1 Absolute Basophils (0.0 - 0.2 /CUMM) 0 Assessment/Plan Assessment/Plan 82 year old patient with history of Afib on amiodarone 200 mg PO daily (reduced to 100 here) and eliquis, diabetes, advanced dementia, presenting with recurrence of her typical episodes of altered consciousness with spontaneous resolution. Non sustained bradycardia ad 50 bpm has been documented however this is unlikely to explain her symptoms. I would keep telemetry to uncover possibly more sustained periods of bradycardia. I agree with reducing dose of amiodarone of 100 mg daily, and it is noreworthy that the half life of amiodarone is rather long and the bradycardic effects may persist for some time after dose reduction. Orthostatic hypotension should also be considered as patient was sitting during the episode, and may have been sitting for a longer period than usual, which may not be well tolerated in a patient with dysautonomia, especially with the combination of hydralazine, quetiapine, amiodarone... i will be following ms Oh in the next days. Consult Acknowledgment - Thank you for your consult request.
--- NOTE | 2017-10-23 19:34 | ELECTROENCEPHALOGRAM REPORT ---
Electroencephalogram Report Electroencephalogram Results Date of service: 10/23/17 Attending MD: Ana Maria Loco MD Drywall Stripper: Simon EEG Number: [id number] Test Utilizes: 10-20 system, 21 lead 18 channel digital recording Pertinent Hx/Physical/Neuro Findings/Clin Diagnosis: Aphasic episodes. Inpatient Medications: Current Medications Sig/Lazaro Start time Last Medication Dose Route Stop Time Status Admin Acetaminophen 650 MG Q6P PRN 10/20 1800 AC PO Amiodarone HCl 100 MG DAILY 10/21 0900 AC 10/23 PO 0905 Apixaban 5 MG BID 10/20 2100 AC 10/23 PO 0905 Aspirin 81 MG DAILY 10/21 0900 AC 10/23 PO 0905 Atorvastatin Calcium 20 MG QPM 10/20 2100 AC 10/22 PO 2128 Diclofenac Sodium 1 SERAFIN BID 10/22 2099 AC 10/23 TOP 09 Hydralazine HCl 50 MG Q12 10/20 2100 AC 10/23 PO 0905 Hydrochlorothiazide 25 MG DAILY 10/21 0900 AC 10/23 PO 0905 Levothyroxine Sodium 0.112 MG 0700 10/21 0700 AC 10/23 PO 0541 Memantine 10 MG DAILY 10/21 0900 AC 10/23 PO 0905 Mirtazapine 15 MG AT BEDTIME 10/21 2100 AC 10/22 PO 2128 Nicotinic Acid 500 MG AT BEDTIME 10/21 2100 AC 10/22 PO 2128 Oxycodone/ 0.5 TAB Q12 10/22 2130 AC 10/23 Acetaminophen PO 0905 Oxycodone/ 0.5 TAB Q12H 10/20 2345 DC 10/22 Acetaminophen PO 0903 Polyethylene Glycol 17 GM DAILY 10/21 0900 AC 10/23 PO 0904 Quetiapine Fumarate 25 MG AT BEDTIME 10/21 2100 AC 10/22 PO 2128 Senna/Docusate Sodium 1 TAB BID 10/20 2100 AC 10/23 PO 0905 Timolol Maleate 1 GTT AT BEDTIME 10/21 2100 AC 10/22 OPH 2129 Trazodone HCl 25 MG AT BEDTIME 10/20 2345 AC 10/22 PO 2127 Interpretation: The recording demonstrates the normal frequency gradients with fast beta frequencies being upfront and slower alpha predominating posteriorly. There is no focal slowing and there are no paroxysmal features. The posterior dominant rhythm is 8 hertz bilaterally. Impression: Normal recording in the awake state.
[2017-10-23 22:13] VITALS: BP 110/78
[2017-10-24 07:05] VITALS: BP 146/86
--- NOTE | 2017-10-24 07:08 | PN- Housestaff ---
Elias CM,Edwin 10/24/17 0708: Subjective Follow-up For: Possible seizures Tele-Events Since Last Visit: Sinus rhythm HR 40s-60s Subjective: Patient was seen and examined at bedside. She is resting comfortably. She had no acute events overnight. She currently has no complaints however is a poor historian secondary to advanced dementia. She denies any chest pain, shortness of breath, headaches, dizziness, numbness, tingling, fever, chills. Review of Systems Constitutional: Reports: no symptoms. EENTM: Reports: no symptoms. Cardiovascular: Reports: no symptoms. Respiratory: Reports: no symptoms. Gastrointestinal: Reports: no symptoms. Genitourinary: Reports: no symptoms. Musculoskeletal: Reports: no symptoms. Objective Last 24 Hrs of Vital Signs/I&O Vital Signs Date Time Temp Pulse Resp B/P B/P Pulse O2 O2 Flow FiO2 Mean Ox Delivery Rate 10/24 0705 60 16 146/86 94 Room Air 10/24 0047 72 95 10/24 0000 97 CPAP 10/23 2215 58 95 10/23 2213 98.2 57 18 110/78 94 10/23 2205 110/78 10/23 1404 98.1 59 18 130/60 92 Room Air 10/23 0905 58 142/66 10/23 0905 58 142/66 10/23 0903 58 142/66 10/23 0800 Room Air Intake & Output 10/24 0800 10/24 0000 10/23 1600 Intake Total 120 480 480 Output Total Balance 120 480 480 Intake, Oral 120 480 480 Patient 208 lb Weight Physical Exam General Appearance: Alert, Cooperative, No Acute Distress Skin Temp/Moisture Exam: Warm/Dry Cardiovascular: Regular Rate, Normal S1, Normal S2, No Murmurs Lungs: Clear to Auscultation, Normal Air Movement Abdomen: Normal Bowel Sounds, Soft, No Tenderness Neurological: Normal Speech, Normal Tone, Sensation Intact Extremities: No Clubbing, No Cyanosis, No Edema Current Medications: Current Medications Sig/Lazaro Start time Last Medication Dose Route Stop Time Status Admin Acetaminophen 650 MG Q6P PRN 10/20 1800 AC PO Amiodarone HCl 100 MG DAILY 10/21 09 AC 10/23 PO 09 Apixaban 5 MG BID 10/20 2100 AC 10/23 PO 220 Aspirin 81 MG DAILY 10/21 899 AC 10/23 PO 09 Atorvastatin Calcium 20 MG QPM 10/20 2100 AC 10/23 PO 220 Diclofenac Sodium 1 SERAFIN BID 10/22 2099 AC 10/23 TOP 220 Hydralazine HCl 50 MG Q12 10/20 2099 AC 10/23 PO 220 Hydrochlorothiazide 25 MG DAILY 10/21 0900 AC 10/23 PO 09 Levothyroxine Sodium 0.112 MG 0700 10/21 0700 AC 10/24 PO 0547 Memantine 10 MG DAILY 10/21 09 AC 10/23 PO 09 Mirtazapine 15 MG AT BEDTIME 10/21 2099 AC 10/23 PO 220 Nicotinic Acid 500 MG AT BEDTIME 10/21 2099 AC 10/23 PO 220 Oxycodone/ 0.5 TAB Q12 10/22 2129 AC 10/23 Acetaminophen PO 2203 Polyethylene Glycol 17 GM DAILY 10/21 0900 AC 10/23 PO 0904 Quetiapine Fumarate 25 MG AT BEDTIME 10/21 2099 AC 10/23 PO 220 Senna/Docusate Sodium 1 TAB BID 10/20 2099 AC 10/23 PO 220 Timolol Maleate 1 GTT AT BEDTIME 10/21 2099 AC 10/23 OPH 2205 Trazodone HCl 25 MG AT BEDTIME 10/20 2345 AC 10/23 PO 220 Assessment/Plan Assessment: Patient is an 82-year-old female with a PMH significant for dementia, COPD on O2 as needed, hypothyroidism, paroxysmal A. fib, HLD, HTN, spinal stenosis, DM diet controlled, glaucoma, anxiety, depression who presents from [facility] by ambulance after being found unresponsive the morning of presentation at approximately 0900 on the day of admission. #Episodes of unresponsiveness, possible seizures Patient had an MRI which showed no acute infarct or bleed, however did show chronic ischemic changes. EEG was unremarkable -Per discussion with Dr. Cedeño we will start the patient on Keppra 250 mg 3 times a day and hold for sedation. Of note his neurology progress note says 500 mg twice a day however this was clarified with him via telephone conversation, and we'll start with the lower dose with room for increasing as necessary. Instructions are given to hold Keppra for sedation - patient will follow-up with Dr. Ma as an outpatient -Patient is stable for discharge home today #Anteroseptal dyskinesia seen on echo No acute intervention needed for anteroseptal dyskinesia. Patient will follow up with Dr. Rosario as an outpatient for further cardiac care. -We will decrease patient's home dose of hydralazine from 50 mg twice a day to 25 mg twice a day as hypotensive episodes may be playing a role in her episodes of unresponsiveness. #Chronic medical problems -Continue home medical regimen Diet: Diabetic diet DVT prophylaxis: Olivia Lazo CODE STATUS: Full code Problem List: 1. Seizures Pain Ratin Pain Location: none Pain Goal: Remain pain free Pain Plan: pain pathway Tomorrow's Labs & Rationales: none Ana Maria Loco MD 10/24/17 1303: Attending MD Review Statement Attending Statement Attending MD Statement: examined this patient, discuss w/resident/PA/SUPPLY CHAIN GENERALIST, agreed w/resident/PA/SUPPLY CHAIN GENERALIST, reviewed EMR data (avail) Attending Assessment/Plan: 82F PMH paroxysmal atrial fibrillation on Eliquis, HTN, dementia, sent in from [facility] for several episodes of unresponsiveness. Unclear length of episodes, but reportedly lasts minutes. No symptoms prior to or after episodes. Eyes remain open during these episodes. No loss of continence, tongue biting, or seizure like activity noted. Patient has no complaints herself. Neuro exam normal. EEG and MRI normal. Patient is stable for discharge home. Will follow neurology recommendations for discharge.
[2017-10-24 07:56] LABS: ABSOLUTE BASOPHIL COUNT 0 /CUMM (0.0-0.2); ABSOLUTE EOSINOPHIL COUNT 0.1 /CUMM (0.0-0.7); ABSOLUTE GRANULOCYTE CT 3.8 /CUMM (1.4-6.5); ABSOLUTE LYMPH COUNT 1.4 /CUMM (1.2-3.4); ABSOLUTE MONOCYTE COUNT 0.5 /CUMM (0.10-0.60); BASOPHIL % 0.5 % (0.0-2.0); EOSINOPHIL % 2.4 % (0-5); GRANULOCYTE % 65.4 % (42.2-75.2); HEMATOCRIT 31.3 % (37-47); MEAN CORPUSCULAR HGB 32.7 PG (27.0-31.0); MEAN CORPUSCULAR HGB CONC 33.8 G/DL (33.0-37.0); MEAN CORPUSCULAR VOLUME 96.7 FL (81.0-99.0); MEAN PLATELET VOLUME 10.9 FL (7.4-10.4); PLATELET COUNT 161 /CUMM (130-400); RBC DISTRIBUTION WIDTH 12.7 % (11.5-14.5); RED BLOOD CELL CT 3.23 /CUMM (4.20-5.40); WHITE BLOOD CELL COUNT 5.9 /CUMM (4.8-10.8)
[2017-10-24 10:22] VITALS: BP 122/56
--- NOTE | 2017-10-24 10:36 | Patient Discharge Instructions ---
See Addendum Discharge Instructions General Discharge Information Special Instructions: Take Keppra as directed. Continue all your previous medications. Hold for over sedation, or significant mood changes. We have decreased your dose of Hydralazine. Follow up with your primary care provider, independent video producer, and neurologist after discharge. Acute Coronary Syndrome Inclusion Criteria At DC or during hospital stay patient has or had the following: ACS DIAGNOSIS No Discharge Core Measures Meds if any: Prescribed or Continued at Discharge Meds if any: NOT Prescribed or Continued at Discharge Congestive Heart Failure Inclusion Criteria At DC or during hospital stay patient has or had the following: CHF DIAGNOSIS No Discharge Core Measures Meds if any: Prescribed or Continued at Discharge Meds if any: NOT Prescribed or Continued at Discharge Cerebrovascular accident Inclusion Criteria At DC or during hospital stay patient has or had the following: CVA/TIA Diagnosis No Discharge Core Measures Meds if any: Prescribed or Continued at Discharge Meds if any: NOT Prescribed or Continued at Discharge Venous thromboembolism Inclusion Criteria VTE Diagnosis No VTE Type NONE VTE Confirmed by (Test) NONE Discharge Core Measures - Per Current guidelines, there needs to be overlap - treatment for the first 5 days of Warfarin therapy. - If discharged on Warfarin prior to 5 days of - overlap therapy, the patient will need to be - assessed for post discharge needs including - *Post discharge parental anticoagulation - *Warfarin and/or parental anticoagulation education - *Follow up date to check INR post discharge At least 5 days overlap therapy as Inpatient No Meds if any: Prescribed or Continued at Discharge Note: Overlap Therapy is Warfarin and Anticoagulant Meds if any: NOT Prescribed or Continued at Discharge
[2017-10-24] MEDS ORDERED: KEPPRA500 M1 PO ×2 (10:40→15:54)
--- NOTE | 2017-10-24 10:42 | Discharge Summary ---
Visit Information Visit Dates Admission Date: 10/20/17 Discharge Date: 10/24/17 Hospital Course Course Attending Physician: Ana Maria Loco MD Primary Care Physician: Vicki Gamble MD Consulting Request: 1 Consulting Specialty: Cardiology Consulting Request: 2 Consulting Specialty: Neurology Hospital Course: 82-year-old woman with past medical history of dementia, atrial fibrillation on Eliquis, vse-wqravms-dbxcmfesz diabetes mellitus, COPD on oxygen as needed, hypertension, hyperlipidemia, anxiety, depression, glaucoma, and spinal stenosis sent in from her shelter facility for multiple episodes of unresponsiveness. Patient was reportedly in her normal state of health the day prior to admission but was difficult to wake the morning of admission. Patient would respond by opening her eyes but could not speak and was otherwise confused. Her pupils were reportedly nonreactive. Nursing staff denied any shaking movements, or bowel/bladder incontinence. Patient reportedly had 2 similar episodes over the past 2 weeks where she was brought to the [facility] and treated for urinary tract infection. She denied any complaints at time of admission. ED course -Vital signs: 98.0-98.1, HR 58-65, RR 16-20, SBP 128-147, O2 94-96% on room air -CBC: WBC 6.6, hemoglobin 11.6, hematocrit 32.8, platelet 189 -BMP: Sodium 141, potassium 4.0, chloride 98, CO2 32, urea 19, creatinine 1.0, anion gap 11, glucose 104 -LFT: Total bilirubin 0.8, AST 20, ALT 21, ALP 65 -Miscellaneous: Troponin I 0.02 -Urinalysis: Rare WBC with trace leukocyte esterase -EKG: Old LBBB without ST segment changes -CXR: Unremarkable -CT head without IV contrast: * There are scattered chronic small vessel ischemic changes within the periventricular white matter. No evidence of acute territorial infarct or hemorrhage. Problem list on admission -Recurrent episodes of unresponsiveness, possible TIA versus seizure disorder -Advanced dementia -Atrial fibrillation on Eliquis -COPD, on oxygen as needed -Wgd-qbllrjy-dqduosdck diabetes mellitus -Hypertension -Hyperlipidemia -Anxiety/depression -Glaucoma -Spinal stenosis Hospital course Patient was admitted to the telemetry floor for further evaluation. Neurochecks were consistently unremarkable. Patient had gradual improvement of her alertness but otherwise was at her mental baseline with her advanced dementia. Neurology consult was placed whom felt patient's presentation represents that of seizure activity. Carotid Doppler demonstrated a 50-79% stenosis involving the right ICA. Echocardiogram demonstrated an LVEF of 50-55% and a dyskinetic anteroseptum. MRI brain ruled out any acute bleed or infarcts but did comment on diffuse volume loss with chronic microvascular ischemic changes. EEG did not demonstrate any epileptiform activity. Clinically any CVA/TIA was ruled out and patient's unresponsive episodes. Patient is started on oral Keppra as patient's unresponsive episodes may be due to intermittent seizure activity. This should be held for sedation Cardiology consult was placed for evaluation of bradycardia. Patient remained hemodynamically stable without any significant telemetry findings. Patient should follow-up with Dr. Rosario as an outpatient for further evaluation. Patient is discharged back to her shelter facility. Allergies: Coded Allergies: morphine (Intermediate, VIIOLENT GI UPSET 10/20/17) UNSURE OF REACTION, W10 FROM [facility] DID NOT STATE,PT POOR HISTORIAN AND AMS nitrofurantoin (From MACROBID) (Intermediate, ?? UNSURE 10/20/17) UNSURE OF REACTION, W10 FROM [facility] DID NOT STATE ON PAPERWORK, PT POOR HISTORIAN AND AMS hydromorphone (?? UNSURE 10/20/17) UNSURE OF REACTION, W10 FROM [facility] DID NOT STATE, PT POOR HISTORIAN AND AMS lisinopril (UNKNOWN 10/20/17) Significant Procedures: SERVICE DATE: 10/20/17 EXAM TYPE: RAD - XRY-PORTABLE CHEST XRAY IMPRESSION: Unremarkable chest radiograph. No consolidative disease or effusion. SERVICE DATE: 10/20/17 EXAM TYPE: CAT - CT HEAD WO IV CONTRAST IMPRESSION: There are scattered chronic small vessel ischemic changes within the periventricular white matter. No evidence of acute territorial infarct or hemorrhage. SERVICE DATE: 10/20/17 EXAM TYPE: US - QW-JLCXZEY-ZXDEDSOUN DOPPLER IMPRESSION: - There is a 50-79% stenosis involving the proximal right internal carotid artery by sonographic criteria. - There is a less than 50% stenosis involving the proximal left internal carotid artery by sonographic criteria. SERVICE DATE: 10/20/17 EXAM TYPE: CARD - ECHOCARDIOGRAM CONCLUSIONS Technically difficult study. Left ventricular cavity size normal. Left ventricular wall thickness at upper limits of normal. The anteroseptum is dyskinetic. The remaining alas contract normally. Left ventricular ejection fraction is estimated at 50-55 %. Normal right ventricular size and function. Mild to moderate left atrial dilatation. Mild mitral stenosis. Mild aortic stenosis. SERVICE DATE: 10/21/17- EXAM TYPE: MRI - MRI-HEAD W & W/O KARI IMPRESSION: 1. There are no acute bleeds or infarcts. There are no masses or areas of abnormal enhancement. 2. There is diffuse volume loss and there are chronic microvascular ischemic changes. Disposition Summary Disposition Principal Diagnosis: Unresponsive episodes, possible underlying seizure disorder Additional Diagnosis: Asymptomatic bradycardia Discharge Disposition: SNF Discharge Instructions General Discharge Information Code Status: Full Code Patient's Diet: Diabetic diet Patient's Activity: As tolerated Follow-Up Instructions/Appts: Take Keppra as directed, hold for sedation. Hydralazine dose was decreased. Continue all your previous medications. Follow up with your primary care provider, trimmer operator three knife, and neurologist after discharge. Medications at Discharge Discharge Medications: Stop taking the following medications: Hydralazine HCl (Hydralazine HCl) 50 MG TABLET ORAL EVERY 12 HOURS Continue taking these medications: Ergocalciferol (Vitamin D2) (Vitamin D2) 50,000 UNIT CAPSULE 1 Capsule ORAL EVERY MONTH Instructions: ON THE AT 9 AM Comments: NOT GIVEN IN HOSPITAL Hydrochlorothiazide (Hydrochlorothiazide) 25 MG TABLET 1 Tablet ORAL DAILY Comments: Last Taken: 10/24/17 Time: 9AM Amiodarone (Cordarone) 200 MG TAB 0.5 Tablet ORAL DAILY Comments: Last Taken: 10/24/17 Time: 9AM Memantine HCl (Namenda XR) 14 MG CAP.SPR.24 1 Capsule ORAL DAILY Comments: Last Taken: 10/24/17 Time: 9AM Travoprost (Travatan Z) 0.004 % DROPS 1 Drop Both Eyes DAILY Comments: NOT GIVEN IN HOSPITAL Aspirin (Aspirin*) 81 MG TAB.CHEW 1 Tablet ORAL DAILY Comments: Last Taken: 10/24/17 Time: 9AM Sennosides/Docusate Sodium (Senna S Tablet) 8.6 MG-50 MG TABLET 1 Tablet ORAL TWICE DAILY Comments: Last Taken: 10/24/17 Time: 9AM Atorvastatin Calcium (Atorvastatin Calcium) 20 MG TABLET 1 Tablet ORAL Every night Comments: Last Taken: 10/23/17 Time: 10PM Quetiapine Fumarate (Seroquel) 25 MG TABLET 1 Tablet ORAL TAKE AT BEDTIME Comments: Last Taken: 10/23/17 Time: 10PM Apixaban (Eliquis) 5 MG TABLET 1 Tablet ORAL TWICE DAILY Comments: Last Taken: 10/24/17 Time: 9AM Polyethylene Glycol 3350 (Gavilax) 17 GRAM POWD.PACK 1 Packet ORAL As Directed Comments: Last Taken: 10/24/17 Time: 9AM Fluticasone/Vilanterol (Breo Ellipta 100-25 Mcg INH) 100 MCG-25 MCG/DOSE BLST.W.DEV 1 PUFF ORAL DAILY Comments: NOT GIVEN IN HOSPITAL Acetaminophen (Acetaminophen) 500 MG TABLET 2 Tablet ORAL THREE TIMES DAILY Comments: NOT GIVEN IN HOSPITAL Ipratropium/Albuterol Sulfate (Iprat-Albut 0.5-3(2.5) MG/3 Ml) 0.5 MG-3 MG (2.5 MG BASE)/3 ML AMPUL.NEB 1 VIAL ORAL THREE TIMES DAILY Comments: NOT GIVEN IN HOSPITAL Trazodone HCl (Trazodone HCl) 50 MG TABLET 0.5 Tablet ORAL TAKE AT BEDTIME Comments: Last Taken: 10/23/17 Time: 10PM Fluticasone Propionate (Fluticasone Propionate) 50 MCG/ACTUATION SPRAY.SUSP 1 [place] Both sides of nose TWICE DAILY Comments: NOT GIVEN IN HOSPITAL Diclofenac Sodium (Voltaren) 1 % GEL..GRAM. 2 Gram On the skin TWICE DAILY Instructions: apply to affected area(s) Comments: Last Taken: 10/23/17 Time: 9AM Mirtazapine (Mirtazapine) 15 MG TABLET 1 Tablet ORAL TAKE AT BEDTIME Comments: Last Taken: 10/23/17 Time: 10PM Cyanocobalamin (Vitamin B-12) 1,000 MCG TABLET 1 Tablet ORAL TAKE AT BEDTIME Comments: Last Taken: 10/24/17 Time: 9AM Timolol (Betimol) 0.5 % DROPS 1 DRP Both Eyes TAKE AT BEDTIME Comments: Last Taken: 10/23/17 Time: 10PM Menthol (Biofreeze) (Unknown Strength) GEL..ML. Unknown Dose On the skin TWICE DAILY Comments: NOT GIVEN IN HOSPITAL Oxycodone HCl/Acetaminophen (Percocet 5-325 MG Tablet) 5 MG-325 MG TABLET 0.5 Tablet ORAL TWICE DAILY Comments: Last Taken: 10/23/17 Time: 10PM Levothyroxine Sodium (Levothyroxine Sodium) 112 MCG TABLET 1 Tablet ORAL TAKE AT BEDTIME Comments: Last Taken: 10/24/17 Time: 6AM Potassium Chloride (Potassium Chloride) 20 MEQ TAB.ER.PRT 1 Tablet ORAL DAILY Comments: NOT GIVEN IN HOSPITAL Niacinamide (Niacin) 500 MG TABLET 1 Tablet ORAL Every night Comments: Last Taken: 10/23/17 Time: 10PM Magnesium Hydroxide (Milk Of Magnesia) 400 MG/5 ML ORAL.SUSP 30 Milliliters ORAL DAILY as needed for GI Comments: NOT GIVEN IN HOSPITAL Bisacodyl (Bisacodyl) 10 MG SUPP.RECT 1 Suppository RECTAL as needed for CONSTIPATION Comments: NOT GIVEN IN HOSPITAL Na Phos,M-B/Na Phos,Di-Ba (Fleet Enema) 19 GRAM-7 GRAM/118 ML ENEMA 1 Enema RECTAL DAILY as needed for CONSTIPATION Comments: NOT GIVEN IN HOSPITAL Menthol (Berri-Freez) 10 % SPRAY 1 Application On the skin TWICE DAILY as needed for JOINT PAIN Comments: NOT GIVEN IN HOSPITAL Sodium Chloride (Sodium Chloride) 5 % DROPS 2 DROP Left Eye THREE TIMES DAILY Comments: NOT GIVEN IN HOSPITAL Acetaminophen (Acephen) 650 MG SUPP.RECT 1 SUPPOSITORY RECTALLY Q4H as needed for MILD PAIN/TEMP Comments: NOT GIVEN IN HOSPITAL Acetaminophen (Acetaminophen) 325 MG TABLET 2 Tablet ORAL Q4H as needed for MILD PAIN Comments: NOT GIVEN IN HOSPITAL Ipratropium/Albuterol Sulfate (Iprat-Albut 0.5-3(2.5) MG/3 Ml) 0.5 MG-3 MG (2.5 MG BASE)/3 ML AMPUL.NEB 1 VIAL Inhale through mouth Q4H as needed for SOB Comments: NOT GIVEN IN HOSPITAL Guaifenesin/Dextromethorphan (Robafen-Dm Syrup) 100 MG-10 MG/5 ML SYRUP 10 Milliliters ORAL Every 4 hours as needed for COUGH Comments: NOT GIVEN IN HOSPITAL Oxycodone HCl/Acetaminophen (Percocet 5-325 MG Tablet) 5 MG-325 MG TABLET 0.5 Tablet ORAL Q12H Comments: Last Taken: 10/23/17 Time: 10PM Start taking the following new medications: Hydralazine HCl (Hydralazine HCl) 25 MG TABLET 1 Tablet ORAL TWICE DAILY Qty = 60 No Refills Comments: NOT GIVEN IN HOSPITAL Levetiracetam (Keppra) 250 MG TABLET 1 Tablet ORAL TWICE DAILY Qty = 60 No Refills Comments: NOT GIVEN IN HOSPITAL Copies To: Abraham CM,[place]; Francesca CM,[place]; Vicki Gamble MD
--- NOTE | 2017-10-24 13:07 | PN- Cardiology ---
Subjective Subjective: No recurrence of altered consciousness. No significant arrhythmia or bradycardia noted on monitoring. No acute events otherwise. Discussed with resident, septal dyskinesia does not explain her episodes and does not warrant any further testing. EEG did not reveal any epileptic activity. Objective Vital Signs and I&Os Vital Signs Date Time Temp Pulse Resp B/P B/P Pulse O2 O2 Flow FiO2 Mean Ox Delivery Rate 10/24 1024 59 122/56 10/24 1023 59 122/56 10/24 1022 59 122/56 10/24 0800 Room Air 10/24 0705 60 16 146/86 94 Room Air 10/24 0047 72 95 10/24 0000 97 CPAP 10/23 2215 58 95 10/23 2213 98.2 57 18 110/78 94 10/23 2205 110/78 10/23 1404 98.1 59 18 130/60 92 Room Air Intake & Output 10/24 1600 10/24 0810/24 0000 10/23 1600 10/24 0700 10/23 0000 Intake Total 120 480 480 100 200 Output Total Balance 120 480 480 100 200 Intake, Oral 120 480 480 100 200 Patient 208 lb 206 lb Weight Current Medications: Current Medications Sig/Lazaro Start time Last Medication Dose Route Stop Time Status Admin Acetaminophen 650 MG Q6P PRN 10/20 1800 AC PO Amiodarone HCl 100 MG DAILY 10/21 899 AC 10/24 PO 1024 Apixaban 5 MG BID 10/20 PO 1024 Aspirin 81 MG DAILY 10/21 899 AC 10/24 PO 1024 Atorvastatin Calcium 20 MG QPM 10/20 PO 2204 Diclofenac Sodium 1 SERAFIN BID 10/22 TOP 2205 Hydralazine HCl 50 MG Q12 10/20 PO 1023 Hydrochlorothiazide 25 MG DAILY 10/21 899 AC 10/24 PO 1024 Levothyroxine Sodium 0.112 MG 0710/21 AC 10/24 PO 0547 Memantine 10 MG DAILY 10/21 899 AC 10/24 PO 1024 Mirtazapine 15 MG AT BEDTIME 10/21 PO 2204 Nicotinic Acid 500 MG AT BEDTIME 10/21 PO 2206 Oxycodone/ 0.5 TAB Q12 10/22 2129 AC 10/23 Acetaminophen PO 220 Polyethylene Glycol 17 GM DAILY 10/21 899 AC 10/24 PO 1023 Quetiapine Fumarate 25 MG AT BEDTIME 10/21 2099 AC 10/23 PO 2205 Senna/Docusate Sodium 1 TAB BID 10/20 2100 AC 10/24 PO 1024 Timolol Maleate 1 GTT AT BEDTIME 10/21 2100 AC 10/23 OPH 2205 Trazodone HCl 25 MG AT BEDTIME 10/20 2345 AC 10/23 PO 2205 Results Last 48 Hrs of Labs/Mics: Laboratory Tests 10/24/17714: Anion Gap 10, Estimated GFR 60, BUN/Creatinine Ratio 21.1, CBC w Diff NO MAN DIFF REQ, RBC 3.23 L, MCV 96.7, MCH 32.7 H, MCHC 33.8, RDW 12.7, MPV 10.9 H, Gran % 65.4, Lymphocytes % 24.0, Monocytes % 7.7, Eosinophils % 2.4, Basophils % 0.5, Absolute Granulocytes 3.8, Absolute Lymphocytes 1.4, Absolute Monocytes 0.5 , Absolute Eosinophils 0.1, Absolute Basophils 0 Assessment/Plan Assessment/Plan No evidence of new arrhythmia, bradycardia or acute central neurological process explaining spells of altered consciousness. Stable Afib. Septal dyskinesia does not explain her symptoms and does not warrant further testing. Consider orthostatic hypotension when sitting for prolonged periods, especially with the cerebral vulnerability due to her mixed dementia, and the multiple Rx for her hypertension. I would perhaps reduce or stop her hydralazine. I have no objection to discharging patient today. I will karson follow her at the clinic. Continue telemetry? Yes
[2017-10-24 13:37] VITALS: BP 122/70
--- NOTE | 2017-10-24 14:45 | PN- Neurology ---
Subjective Subjective: unresponsive spells Review of Systems: no headache or dizzyness Objective Vital Signs and I&Os Vital Signs Date Time Temp Pulse Resp B/P B/P Pulse O2 O2 Flow FiO2 Mean Ox Delivery Rate 10/24 1337 98.1 69 18 122/70 95 Room Air 10/24 1024 59 122/56 10/24 1023 59 122/56 10/24 1022 59 122/56 10/24 0800 Room Air 10/24 0705 60 16 146/86 94 Room Air 10/24 0047 72 95 10/24 0000 97 CPAP 10/23 2215 58 95 10/23 2213 98.2 57 18 110/78 94 10/23 2205 110/78 Intake & Output 10/24 1600 10/24 0800 10/24 0000 10/23 1600 10/23 0000 Intake Total 550 120 480 480 100 200 Output Total Balance 550 120 480 480 100 200 Intake, IV 10 Intake, Oral 540 120 480 480 100 200 Patient 208 lb 206 lb Weight MRI IMPRESSION: 1. There are no acute bleeds or infarcts. There are no masses or areas of abnormal enhancement. 2. There is diffuse volume loss and there are chronic microvascular ischemic changes. EEG: Interpretation: The recording demonstrates the normal frequency gradients with fast beta frequencies being upfront and slower alpha predominating posteriorly. There is no focal slowing and there are no paroxysmal features. The posterior dominant rhythm is 8 hertz bilaterally. Impression: Normal recording in the awake state. Physical Exam: alert orienteed to age/place feeling well no recall of event eom full no dysarthria no upper extremity weakness Physical Exam General Appearance: alert Current Medications: Current Medications Sig/Lazaro Start time Last Medication Dose Route Stop Time Status Admin Acetaminophen 650 MG Q6P PRN 10/20 1800 AC PO Amiodarone HCl 100 MG DAILY 10/21 899 AC 10/24 PO 1024 Apixaban 5 MG BID 10/20 2099 AC 10/24 PO 1024 Aspirin 81 MG DAILY 10/21 899 AC 10/24 PO 1024 Atorvastatin Calcium 20 MG QPM 10/20 2099 AC 10/23 PO 2204 Diclofenac Sodium 1 SERAFIN BID 10/22 2099 AC 10/23 TOP 220 Hydralazine HCl 50 MG Q12 10/20 2099 AC 10/24 PO 1023 Hydrochlorothiazide 25 MG DAILY 10/21 09 AC 10/24 PO 1024 Levothyroxine Sodium 0.112 MG 10/21 07 AC 10/24 PO 0547 Memantine 10 MG DAILY 10/21 09 AC 10/24 PO 1024 Mirtazapine 15 MG AT BEDTIME 10/21 2099 AC 10/23 PO 220 Nicotinic Acid 500 MG AT BEDTIME 10/21 2099 AC 10/23 PO 220 Oxycodone/ 0.5 TAB Q12 10/22 2129 AC 10/23 Acetaminophen PO 220 Polyethylene Glycol 17 GM DAILY 10/21 899 AC 10/24 PO 1023 Quetiapine Fumarate 25 MG AT BEDTIME 10/21 2099 AC 10/23 PO 2205 Senna/Docusate Sodium 1 TAB BID 10/20 2099 AC 10/24 PO 1024 Timolol Maleate 1 GTT AT BEDTIME 10/21 2099 AC 10/23 OPH 2205 Trazodone HCl 25 MG AT BEDTIME 10/20 2345 AC 10/23 PO 220 Assessment/Plan Assessment: recurrent unresponsive spells questionable seizures Plan: levetiracetam 500 BID d/c if somnolent or mood change
[2017-10-24] MEDS ORDERED: KEPPRA250 M1 PO ×2 (14:46→16:06)
[2017-10-24] MEDS ORDERED: HYDRALAZINE HCL25 M1 PO (15:15)
[2017-10-24 16:07] VITALS: BP 140/70
== END 2017-10-24 16:30 | DRG 101 ==
LOC: ERH 13:14 → ERHI 16:03 → 1NO 16:03 → ENRESERV 17:45 → ENTRNSPT 18:28 → 1NO 19:01 → EDTRNSPTSTS 19:07 → CMPTRNSPT 19:11 → 1NO 10-24 09:52
PROVIDERS: Dermatology; Physician Assistant Medical; Student in an Organized Health Care Education/Training Program
DX: R56.9 Unspecified convulsions (principal); I48.0 Paroxysmal atrial fibrillation; E11.9 Type 2 diabetes mellitus without complications; F03.90 Unspecified dementia, unspecified severity, without behavioral disturbance, psychotic disturbance, mood disturbance, and anxiety; E78.5 Hyperlipidemia, unspecified; E55.9 Vitamin D deficiency, unspecified; G24.9 Dystonia, unspecified; J44.9 Chronic obstructive pulmonary disease, unspecified; R00.1 Bradycardia, unspecified; Z79.01 Long term (current) use of anticoagulants; F41.9 Anxiety disorder, unspecified; F32.9 Major depressive disorder, single episode, unspecified; M48.00 Spinal stenosis, site unspecified; H40.9 Unspecified glaucoma; Z88.5 Allergy status to narcotic agent; Z88.8 Allergy status to other drugs, medicaments and biological substances; Z79.82 Long term (current) use of aspirin; Z79.891 Long term (current) use of opiate analgesic; Z79.51 Long term (current) use of inhaled steroids; M25.562 Pain in left knee; M25.561 Pain in right knee
CPT/HCPCS: 1NSP; 70552; 36592; 70553; 71045; 81001; 82436; 87040; 87086; 93005; 93010; 93306; 95816; A9579; J3490